=== PATIENT | female | born 1995 | race African-American/Black ===

== ENCOUNTER 2018-01-30 10:25 | Emergency (ER) | payer MEDICAID ==
[~2018-01-30 10:25] MED LIST: LEVA750T PO; LINE1TAB22 PO; PREN0.01 PO; [UNRECOGNIZED DRUG - CODE] IU
[2018-01-30 10:29] VITALS: BP 136/69; PULSE 94; RESP 16; TEMP 98.4; O2SAT 98
[2018-01-30] MEDS ORDERED: CLIN150C14 PO (13:47)
--- NOTE | 2018-01-30 13:57 | PD ---
HPI Chief Complaint: Oral / Dental Pain or Problem Time Seen by Provider: 12:40 Travel History International Travel<30 days: No Contact w/Intl Traveler<30days: No Traveled to known affect area: No History of Present Illness HPI This patient complains of pain in her right upper jaw. Duration 3 days. Severity is moderate. She has a dentist appointment tomorrow but felt she needed to get checked today. She denies fever. PFSH Past Medical History Cancer: No Cardiovascular Problems: No Diminished Hearing: No Genitourinary: No Medical other: Yes (MENEGITIS ) Musculoskeletal: No Neurologic: No Psychiatric: No Reproductive: No Respiratory: No Integumentary: Yes (HX CELLULITIS ) Immunizations Current: Yes Influenza Vaccination: No ?: : 1 Para: 1 Past Surgical History Abdominal Surgery: Yes ( 07/03/2014) Section: Yes (X 1) Gynecologic Surgery: Yes ( 07/03/2014) Social History Alcohol Use: No Tobacco Use: No Substance Use: No Allergies-Medications (Allergen,Severity, Reaction): Coded Allergies: penicillin G (Unverified Allergy, Mild, 06/11/17) Reported Meds & Prescriptions Reported Meds & Active Scripts Active Clindamycin (Clindamycin HCl) 150 Mg Cap 300 Mg PO Q6H 7 Days Zyvox (Linezolid) 600 Mg Tab 600 Mg PO Q12 Levaquin 750 Mg Tab (Levofloxacin) 750 Mg Tab 750 Mg PO DAILY@11 Reported Para-Jonas (Misc Natural Products) Cap 1 Iud IU ONCE Vit ( Plus) (Prenat Multivit/Kern/Iron/Folic Ac) Tab 1 Tab PO DAILY Review of Systems General / Constitutional: No: Fever HENT: Positive: Dental Difficulties, No: Headaches Respiratory: No: Cough Gastrointestinal: No: Nausea Physical Exam Narrative SKIN: Focused skin assessment reveals no rash or ulcers. Skin is warm and dry. Palpation shows no induration or nodules. NECK: Symmetrical appearance, midline trachea. No mass or crepitus. Thyroid without enlargement, tenderness, or mass. Oral cavity: Uvula midline. No exudate. She has a gingival abscess in the right upper jaw. It is tender but not draining. It is fluctuant Data Data Last Documented VS Vital Signs Date Time Temp Pulse Resp B/P (MAP) Pulse Ox O2 Delivery O2 Flow Rate FiO2 4/5/18 10:29 98.4 94 16 136/69 (91) 98 Orders Orders Wound Culture And Gram Stain (01/30/18 13:46) MDM Medical Decision Making Medical Screen Exam Complete: Yes Emergency Medical Condition: Yes Medical Record Reviewed: Yes Differential Diagnosis Abscess, cavity, pharyngitis Narrative Course I have reviewed the patient's electronic medical record. This patient has a right upper jaw gingival abscess. She wants incision and drainage which seems very appropriate. She is , 4 months. Procedure note: We discussed risks and benefits and alternatives and she gives verbal consent. No anesthesia was required. I used an 11 blade scalpel to incise the gingival abscess. A fair amount of thick yellow pus was drained. Culture and sensitivity and Gram stain was obtained and sent to the lab I expressed all the pus She tolerated this well I am prescribing her a week of clindamycin. She has a dentist appointment for follow-up tomorrow Diagnosis Primary Impression: Abscess of upper gingiva Additional Impression: Encounter for incision and drainage procedure Additional Instructions: Follow-up with dentist as scheduled Take antibiotics Med/Other Pt SpecificInfo: Prescription(s) given Scripts Clindamycin (Clindamycin) 150 Mg Cap 300 MG PO Q6H for Infection for 7 Days, #56 CAP 0 Refills Prov: Hamilton Lacy MD 01/30/18 Disposition: 01 DISCHARGE HOME Condition: Stable Hamilton Lacy MD Jan 30, 2018 13:57
== END 2018-01-30 14:17 | disposition home or self-care (01) ==
LOC: NEPD 10:25
DX: K05.219 Aggressive periodontitis, localized, unspecified severity (principal)
CPT/HCPCS: 41800; 87070

== ENCOUNTER 2018-07-31 22:55 | Inpatient (IN) ==
--- NOTE | 2018-07-31 23:39 | ED ---
History of Present Illness Primary Care Physician: No Primary Care Physician Chief Complaint: ctx, LOF History of Present Illness: Pt is a 22y/o @ 40.0wks. She had PNC with a CNM from [place]. She presents with c/o ctx which started this evening and ROM 30m prior to arrival ( meconium) with continued leaking. She reports ctx are painful. She had a c/s in 2013 for "failure to progress" at 5cm but states the MD who came on told her she needed to be sectioned and she merely agreed. She strongly desires . + FM. She states that she is GBS positive. OBHx: 1. CS in 2013 2. current Weeks Gestation:: 40 Para: 1 : 2 Review of Systems All other systems reviewed negative except as stated in HPI PMFSH - Medical / Surgical Hx Neg / Unobtainable Medical Problems Denied: Yes - Surgical History Surgical History: Surgical History (Last Updated 07/31/18 @ 23:35 by Joe Abreu MD) History of delivery - Social History I have reviewed the patient's Social History: Yes - Tobacco History Second Hand Smoke Exposure: No Tobacco Use In Past 30 Days: No Smoking Status: Never smoker - Alcohol History How Often Do You Have a Drink Containing Alcohol: Never - Substance Use History Substance History: No History of Abuse Medications and Allergies Allergies Allergy/AdvReac Type Severity Reaction Status Date / Time penicillin G Allergy Mild Rash Verified 05/21/18 12:58 Home Medications Medication Instructions Recorded Confirmed Type No Known Home Medications 05/21/18 05/21/18 History Exam Vital signs: Vital Signs 07/31/18 23:19 07/31/18 23:25 Temperature 98.5 F Pulse Rate 81 Respiratory Rate 18 Blood Pressure 141/90 H Narrative: General: well developed, well nourished, no acute distress HEENT: normocephalic atraumatic, extraocular movements intact, neck supple Abdomen: soft, gravid, nontender, nondistended Uterus: fundus term Extremities: full range of motion Skin: normal coloration, no rashes, no suspicious skin lesions noted Neurologic: cranial nerves 2-12 grossly intact, normal muscle tone, normal gait Psychiatric: normal mood and affect, appropriate FHTs: 150s, moderate variability, no accels, occasional variables Hulett: ctx q4-6m Cvx: 5-6/50/-2 Assessment and Plan - Diagnosis (1) 40 weeks gestation of Code(s): Z3A.40 - 40 weeks gestation of Status: Acute (2) History of delivery Code(s): Z98.891 - History of uterine scar from previous surgery Status: Acute (3) Rupture of membranes with meconium present Code(s): O77.0 - Labor and delivery complicated by meconium in amniotic fluid Status: Acute (4) Uterine contractions during Code(s): O62.2 - Other uterine inertia Status: Acute - Plan 22y/o @ 40.0wks with labor, ROM (meconium), h/o c/s x1. -- admit to L&D -- CLD, CEFM/toco -- epidural/lucio PRN -- desires -- GBS+ with PCN mild allergy (ancef ordered) Dispo: anticipate Discharge Plan - Discharge Disposition Patient Disposition: 30 Still Patient - Physicians Team ED Provider: Joe Abreu V Primary Care Provider: Primary Care Brook[place],No
[2018-07-31] MEDS ORDERED: fentaNYL Citrate Inj 100 MCG/2 ML Ampul IV.PUSH PRN ×2 (23:41)
[2018-07-31] MEDS ORDERED: Naloxone Inj 0.4 MG/ML Vial IV.PUSH PRN (23:41)
[2018-07-31] MEDS ORDERED: Sodium Chlor 0.9% Inj 500 ML IV.SIG PRN (23:41)
[2018-07-31] MEDS ORDERED: Oxytocin 30 Units/500ml Premix 30 UNITS/500 ML BAG IV.SIG ONE (23:41)
[2018-07-31] MEDS ORDERED: Sod Chloride 0.9% Inj 1,000 ML IV.CONT PRN (23:41)
[2018-07-31] MEDS ORDERED: Oxytocin 30 Units/500ml Premix 30 UNITS/500 ML BAG IV.SIG PRN (23:42)
[2018-07-31] MEDS ORDERED: Citric Acid/Sodium Citrate Liq 30 ML UDC PO SCH (23:45)
[2018-08-01 00:20] LABS: Amorphous Sediment,Urine Rare /hpf; Bacteria,Urine Occasional /hpf; Bilirubin,Urine Negative (Negative); Clarity,Urine Cloudy (Clear); Color,Urine Amber (Yellw/Straw); Glucose,Urine (UA) Negative (Negative); Leukocyte Esterase,Urine Moderate (Negative); Mucus,Urine Moderate /lpf (Occasional); Nitrite,Urine Negative (Negative); Renal Epithelial Cells,Urine <1 /hpf; Specific Gravity,Urine 1.017 (1.002-1.035); Squamous Epithelial Cell,Urine 4 /hpf (0-5); Urobilinogen,Urine 4 or Greater mg/dL (Less than 2)
[2018-08-01 00:20] LABS: Hematocrit 32.3 % (35.0-46.0); Hemoglobin 10.6 gm/dL (11.6-15.3); Mean Corpuscular HGB Conc 32.9 % (32.0-36.0); Mean Corpuscular Hemoglobin 26.6 pg (27.0-34.0); Mean Corpuscular Volume 80.7 fL (80.0-100.0); Mean Platelet Volume 7.8 fL (7.0-11.0); Platelet Count 310 th/mm3 (150-450); Red Cell Distribution Width 16.3 % (11.6-17.2)
[2018-08-01 00:24] LABS: Amphetamine Urine With Conf Neg (Neg); Benzodiazepine Urine With Conf Neg (Neg)
[2018-08-01 01:23] LABS: Hepatitits B Surface Antigen Nonreactive (Nonreactive)
[2018-08-01 01:28] LABS: Hepatitis A IgM Antibody Nonreactive (Nonreactive)
[2018-08-01] MEDS ORDERED: fentaNYL 2MCG-Bupiv 0.125% Epi 150 ML EPIDURAL ONE (01:57)
[2018-08-01] MEDS ORDERED: Lidocaine 2%/Epinephrine 1:200,000 PF Inj 20 ML Vial ONE (02:01)
[2018-08-01] MEDS ORDERED: Lidocaine PF 1% Inj 5 ML Vial ONE (02:02)
--- NOTE | 2018-08-01 04:58 | P.OBLABOR ---
Subjective Interval history: CTSP by RN for bradycardia. Pt being repositioned upon my arrival and FSE placed. Objective Vital Signs: Vital Signs - 8 hr 07/31/18 23:19 07/31/18 23:25 07/31/18 23:35 Temperature 98.5 F Pulse Rate 81 97 H Respiratory Rate 18 Blood Pressure 141/90 H 140/80 07/31/18 23:55 08/01/18 00:30 08/01/18 01:00 Temperature Pulse Rate 102 H Respiratory Rate 18 18 Blood Pressure 116/85 08/01/18 01:25 08/01/18 02:06 08/01/18 02:11 Temperature Pulse Rate 94 H Respiratory Rate 18 Blood Pressure 131/78 08/01/18 02:13 08/01/18 02:26 08/01/18 02:55 Temperature Pulse Rate 89 84 84 Respiratory Rate Blood Pressure 150/94 H 130/85 116/62 08/01/18 03:01 08/01/18 03:20 08/01/18 03:25 Temperature 97.9 F Pulse Rate 88 96 H 91 H Respiratory Rate 18 Blood Pressure 116/63 113/62 115/58 L 08/01/18 03:30 08/01/18 03:35 08/01/18 03:41 Temperature Pulse Rate 90 93 H 95 H Respiratory Rate Blood Pressure 106/57 L 115/66 112/60 08/01/18 03:51 08/01/18 04:11 08/01/18 04:15 Temperature Pulse Rate 91 H 89 Respiratory Rate 18 20 Blood Pressure 132/41 L 125/56 L 08/01/18 04:16 Temperature Pulse Rate 116 H Respiratory Rate Blood Pressure 112/61 Objective: No cord prolapse or palpable uterine rupture. Head -3 but not floating. No VB. Cvx 4-5/60/-3 FHR returned to baseline with repositioning and O2. Review of tracing demonstrates moderate variability but some late decelerations. Assessment and Plan - Diagnosis (1) 40 weeks gestation of Code(s): Z3A.40 - 40 weeks gestation of Status: Acute (2) History of delivery Code(s): Z98.891 - History of uterine scar from previous surgery Status: Acute (3) Rupture of membranes with meconium present Code(s): O77.0 - Labor and delivery complicated by meconium in amniotic fluid Status: Acute (4) Uterine contractions during Code(s): O62.2 - Other uterine inertia Status: Acute - Plan Monitor closely. Pt aware of possibility of need for rCS if NRFHTs or arrest of dilation.
[2018-08-01] MEDS ORDERED: Lidocaine 1%/Epinephrine 1:100,000 Inj 20 ML Vial ONE (06:02)
[2018-08-01] MEDS ORDERED: Lidocaine 2%/Epinephrine 1:100,000 Inj 20 ML Vial ONE (06:04)
[2018-08-01] MEDS ORDERED: Morphine Sulfate PF Inj 5 MG/10 ML Ampul ONE (06:05)
--- NOTE | 2018-08-01 06:05 | P.OBGPN ---
Pt with recurrent late decelerations. STAT called. Pt refusing. States that she wants "to try one more thing". Pt advised that FHT is cat 3 and there are concerns for neurological damage to her baby. Pt states that she "needs more information". I explained quickly that the heartbeat of the baby is dropping with each contraction. Pt states that it is not dropping low enough. Advised pt again of emergent situation and strongly encouraged cooperation for rCS, especially given cervical exam of only 4-5cm. Pt and family member asking if pitocin can be given to help labor advance. Pt states that she wants 5-10 minutes to discuss with family. Pt advised that there is not time to waste and prolonging delay can lead to significant neurologic brain damage to baby.
[2018-08-01] MEDS ORDERED: Lidocaine PF 1% Inj 5 ML Syringe OTHER ONE (06:10)
[2018-08-01] MEDS ORDERED: Succinylcholine Inj 200 MG/10 ML Vial IV.PUSH ONE (06:10)
[2018-08-01] MEDS ORDERED: Ketorolac Inj 30 MG/ML (IVP) Vial IV.PUSH ONE (06:10)
[2018-08-01 06:37] LABS: Cord Arterial Blood HCO3 21.8
[2018-08-01] MEDS ORDERED: fentaNYL Citrate Inj 100 MCG/2 ML Ampul ONE (07:02)
[2018-08-01] MEDS ORDERED: Oxytocin 30 Units/500ml Premix 30 UNITS/500 ML BAG IV.SIG ONE (07:03)
[2018-08-01] MEDS ORDERED: Simethicone 80 MG Chew Tablet PO PRN (07:03)
[2018-08-01] MEDS ORDERED: Morphine Sulfate Inj 2 MG/ML Vial IV.PUSH PRN (07:04)
--- NOTE | 2018-08-01 07:20 | P.OP ---
- Preoperative Diagnosis (1) bradycardia during labor (2) 40 weeks gestation of (3) History of delivery (4) Rupture of membranes with meconium present - Postoperative Diagnosis (1) 40 weeks gestation of (2) History of delivery (3) Rupture of membranes with meconium present (4) bradycardia during labor Date of procedure: 08/01/18 Procedure: repeat section Anesthesia: GETA Surgeon: Joe Abreu MD Estimated blood loss (mL): 400 IV fluids (mL): 1,600 Urine output (mL): 300 Pathology: other (cord blood, cord gas, placenta) Operation and Findings: Antibiotics: 2g ancef prior to skin incision DVT prophylaxis: SCDs were in place and active throughout the entire procedure Findings: 1. dense R lateral abdominal to uterine adhesions 2. vtx male delivered at 06:18, 1 minute 1, other APGARs pending, wt [id number] Complications: none Disposition: to PACU in stable condition Indication: 22y/o @ 40.1wks with h/o CS x1 undergoing desired TOLAC. Experienced cat 3 tracing with eventual bradycardia. Pt refused c- section for 11 minutes. Technique: The R/B/A were discussed with the pt, all questions answered, and consents signed. The pt was taken to the operating room where general anesthesia was induced. She was splashed with betadine and draped in the normal sterile fashion in the dorsal supine position. A Pfannenstiel skin incision was made with the scalpel and carried through to the underlying layer of fascia. The fascia was incised in the midline and the incision extended manually. The rectus muscles were in the midline, and the peritoneum identified and entered bluntly. The peritoneal incision was stretched with good visualization of the bladder. The bladder blade was inserted and the vesicouterine peritoneum identified, grasped with pick-ups, and entered sharply with Metzenbaum scissors. This incision was extended laterally and a bladder flap created digitally. The bladder blade was then reinserted and the lower uterine segment incised in a transverse fashion with the scalpel. The uterine incision was stretched superiorly and inferiorly. The bladder blade was removed and the 's head delivered atraumatically followed by the body. The cord was milked x4 and immediately double clamped and cut and infant handed off to the waiting team. The placenta expelled with manual fundal massage. The uterus was exteriorized and cleared of all clots and debris. Dense adhesions were noted from the R lateral uterus to the anterior abdominal wall. The uterine incision was repaired with 0-vicryl in a running, locked fashion. A second layer using 0- monocryl suture was used to embricate and Alfie was placed along the corners to obtain excellent hemostasis. The posterior cul-de-sac was suctioned and the uterus was returned to the abdomen. The gutters were cleared of all clots and debris. The peritoneum was reapproximated with 3-0 vicryl in a running fashion. The rectus muscles were reapproximated with a 0-monocryl figure of eight. The underneath fascia was inspected and found to be hemostatic. The fascia was closed with 0-vicryl in a running fashion. The subcutaneous tissue was irrigated with saline and made hemostatic with the Bovie. The subcutaneous layer was reapproximated with plain gut with simple interrupted stitches. The skin was closed with 4-0 monocryl. Steristrips were placed and the incision dressed appropriately. The patient tolerated the procedure well. She was taken to the recovery room in stable condition. Sponge, lap, instrument, and needle counts were correct x3.
[2018-08-01] MEDS ORDERED: Oxytocin 30 Units/500ml Premix 30 UNITS/500 ML BAG IV.SIG PRN (12:03)
[2018-08-01] MEDS ORDERED: Zolpidem Tartrate 5 MG Tablet PO PRN (21:00)
[2018-08-02 06:34] LABS: Baso % (Auto) 0.1 % (0.0-2.0); Eos % (Auto) 0.1 % (0.0-4.0); Hematocrit 25.9 % (35.0-46.0); Hemoglobin 8.5 gm/dL (11.6-15.3); Lymph # (Auto) 1.8 th/mm3 (1.0-4.8); Lymph % (Auto) 12.7 % (9.0-44.0); Mean Corpuscular Hemoglobin 27.1 pg (27.0-34.0); Mean Corpuscular Volume 82.1 fL (80.0-100.0); Mean Platelet Volume 8.1 fL (7.0-11.0); Neut % (Auto) 80.1 % (16.0-70.0); Platelet Count 255 th/mm3 (150-450); Red Blood Count 3.15 mil/mm3 (4.00-5.30); Red Cell Distribution Width 16.9 % (11.6-17.2); White Blood Count 13.8 th/mm3 (4.0-11.0)
--- NOTE | 2018-08-02 07:25 | P.PNOB ---
Subjective Post op day: 1 Interval history: Postop day #1, delivered as a at 40 weeks. Patient was a stat for category 3 tracing. Patient seen and examined bedside this morning, patient is doing well. Patient is eating and drinking without difficulty. Patient is ambulating and voiding without difficulty. Denies any chest pain/ shortness of breath/dizziness. No calf tenderness. Well controlled on current medications. Objective Vital Signs/I&O: Vital Signs 08/01/18 07:25 08/01/18 07:40 08/01/18 07:55 Temperature Pulse Rate 91 H 89 84 Respiratory Rate 18 16 18 Blood Pressure 112/69 106/61 111/67 08/01/18 08:10 08/01/18 08:19 08/01/18 09:15 Temperature 97.7 F Pulse Rate 81 85 76 Respiratory Rate 18 18 18 Blood Pressure 115/58 L 105/62 118/75 08/01/18 14:15 08/01/18 20:15 08/02/18 00:15 Temperature 98.6 F 98.5 F 98.4 F Pulse Rate 89 72 67 Respiratory Rate 9 L 18 18 Blood Pressure 137/77 117/72 113/68 08/02/18 06:10 Temperature 98.3 F Pulse Rate 63 Respiratory Rate 18 Blood Pressure 107/69 Intake & Output 08/01/18 08/02/18 08/02/18 18:59 06:59 18:59 Intake Total 1100 / 1100 Balance 1100 / 1100 Intake: IV 1100 / 1100 LR 1000 mL Inj 1,000 ML @ 125 1000 / 1000 mls/hr IV.CONT .Q8H JJ Rx#: [id number] Ancef Inj 1,000 MG In NS Inj 100 / 100 100 ML @ 200 mls/hr IV.SIG Q4H JJ Rx#:[id number] Result Diagrams: 08/02/18 05:49 Objective Remarks: GENERAL: Well-nourished, well-developed patient. CARDIOVASCULAR: Regular rate and rhythm without murmurs, gallops, or rubs. RESPIRATORY: Breath sounds equal bilaterally. No accessory muscle use. ABDOMEN/GI: Abdomen soft, non-tender, bowel sounds present. Incision: Clean, dry and intact. Dressing in place. Fundus: Firm, non-tender at umbilicus. Fundus mildly tender. GENITOURINARY: Light to moderate bleeding. EXTREMITIES: No cyanosis or edema, non-tender, without signs of DVT. Medications and IVs: Active Medications Citric Acid/Sodium Citrate (Sodium Citrate/Citric Acid Liq) 30 ml PO PIE CHEF [facility] Stop: 08/04/18 23:44 Diphtheria/Pertussis/Tetanus Vacc (Boostrix Vaccine Inj) 0.5 ml IM .ONCE ONE Stop: 08/02/18 16:01 Fentanyl Citrate (Fentanyl Inj) 50 mcg IV.PUSH Q1H PRN PRN Reason: Pain Scale 3 - 5 Fentanyl Citrate (Fentanyl Inj) 100 mcg IV.PUSH Q1H PRN PRN Reason: PAIN SCALE 6 TO 10 Last Admin: 08/01/18 00:25 Dose: 100 mcg Lactated Ringer's (Lr 1000 Ml Inj) 1,000 mls @ 3,000 mls/hr IV.SIG UNSCH PRN PRN Reason: compromise or epidural Last Infusion: 08/01/18 02:20 Dose: Infused Lactated Ringer's (Lr 1000 Ml Inj) 1,000 mls @ 125 mls/hr IV.CONT .Q8H [facility] Last Infusion: 08/01/18 17:29 Dose: Infused Sodium Chloride (Ns Inj) 500 mls @ 1,000 mls/hr IV.SIG UNSCH PRN PRN Reason: SEE LABEL COMMENTS Sodium Chloride (Ns Inj) 1,000 mls @ 100 mls/hr IV.CONT .Q10H PRN PRN Reason: SEE LABEL COMMENTS Oxytocin (Pitocin 30 Units/Ns 500 Ml Premix) 30 units in 500 mls @ 1 mls/hr IV.SIG TITRATE PRN; Protocol PRN Reason: For induction of labor Lactated Ringer's (Lr 1000 Ml Inj) 1,000 mls @ 100 mls/hr IV.CONT .Q10H [facility] Stop: 08/02/18 08:02 Last Admin: 08/02/18 05:32 Dose: Not Given Oxytocin (Pitocin 30 Units/Ns 500 Ml Premix) 30 units in 500 mls @ 100 mls/hr IV.SIG UNSCH PRN PRN Reason: Heavy bleeding Ketorolac Tromethamine (Toradol Inj) 30 mg IM Q6H PRN PRN Reason: SEE LABEL COMMENTS Last Admin: 08/01/18 14:27 Dose: 30 mg Lidocaine HCl (Xylocaine 1% Inj) 10 ml INFILTRATN PRN PRN PRN Reason: For episiotomy repair Stop: 08/02/18 23:40 Lidocaine HCl (Xylocaine 1% Inj) 0.1 ml I-DERMAL PRN PRN PRN Reason: For IV start Stop: 08/03/18 23:40 Measles/Mumps/Rubella Vaccine Live (M-M-R Ii Vaccine Inj) 0.5 ml SQ .ONCE ONE Stop: 08/02/18 16:01 Mineral Oil (Muri-Lube Oil) 10 ml TOPICAL PRN PRN PRN Reason: PRN perineal massage Morphine Sulfate (Morphine Inj) 2 mg IV.PUSH Q3H PRN PRN Reason: PAIN 1-10;IF UNABLE TO TAKE PO Naloxone HCl (Narcan Inj) 0.1 mg IV.PUSH Q2M PRN PRN Reason: for opiate reversal Ondansetron HCl (Zofran Inj) 4 mg IV.PUSH Q6H PRN PRN Reason: NAUSEA OR VOMITING Last Admin: 08/01/18 00:37 Dose: 4 mg Ondansetron HCl (Zofran Inj) 4 mg IV.PUSH Q6H PRN PRN Reason: NAUSEA OR VOMITING Oxycodone/Acetaminophen (Percocet 5/325 Mg) 1 tab PO Q4H PRN PRN Reason: PAIN SCALE 3 TO 5 Last Admin: 08/02/18 02:43 Dose: 1 tab Oxycodone/Acetaminophen (Percocet 5/325 Mg) 2 tab PO Q4H PRN PRN Reason: PAIN SCALE 6 TO 10 Senna/Docusate Sodium (Samira-Colace) 2 tab PO Q12H PRN PRN Reason: CONSTIPATION Simethicone (Mylicon Chew) 80 mg PO QID PRN PRN Reason: FLATULENCE Sodium Chloride (Ns Flush) 2 ml IV.FLUSH BID [facility] Last Admin: 08/02/18 05:32 Dose: Not Given Sodium Chloride (Ns Flush) 2 ml IV.FLUSH PRN PRN PRN Reason: FLUSH AFTER USING IV ACCESS Sodium Chloride (Ns Flush) 2 ml IV.FLUSH BID [facility] Last Admin: 08/02/18 05:32 Dose: 2 ml Sodium Chloride (Ns Flush) 2 ml IV.FLUSH PRN PRN PRN Reason: FLUSH AFTER USING IV ACCESS Zolpidem Tartrate (Ambien) 5 mg PO HS PRN PRN Reason: INSOMNIA Assessment and Plan - Diagnosis (1) delivery delivered Code(s): O82 - Encounter for delivery without indication Status: Acute Plan: Patient was counseled to do 6 weeks of pelvic rest. --AF VSS --Passing gas -- Positive marijuana use on UDS -- Hb stable at 8.5 from 10.6, will plan to DC on ferrous sulfate 325 twice daily, vitamin C 500 daily, Colace 100 twice daily --Continue routine care --Motrin and Percocet when necessary for pain --Encourage OOB --Pelvic rest for 6 weeks will need follow-up appointment at that time. --Contraception: Unsure, continue to discuss --Anticipate discharge tomorrow or Saturday - Plan Monitor closely. Pt aware of possibility of need for rCS if NRFHTs or arrest of dilation.
[2018-08-02] MEDS: Senna/Docusate Sodium 8.6/50 MG Tablet PO PRN ×2 (08:15→23:14)
[2018-08-02] MEDS ORDERED: Measles/Mumps/Rubella Vaccine Inj 0.5 ML Vial SQ ONE (16:00)
[2018-08-02] MEDS ORDERED: Diphtheria/Tetanus/Pertussis Vaccine Inj 0.5 ML Syringe IM ONE (16:00)
--- NOTE | 2018-08-03 08:12 | P.PNOB ---
Subjective Post op day: 2 Interval history: Postop day #2, delivered as a at 40 weeks for stat 2/2 category 3 tracing. Patient seen and examined bedside this morning, patient is doing well. Patient is eating and drinking without difficulty. Patient is ambulating , passing gas, and voiding without difficulty. Denies any chest pain/shortness of breath/dizziness. No calf tenderness. Well controlled on current medications. Objective Vital Signs/I&O: Vital Signs 08/02/18 09:58 08/02/18 21:28 Temperature 98.0 F 98.0 F Pulse Rate 88 74 Respiratory Rate 20 18 Blood Pressure 103/62 123/64 Result Diagrams: 08/02/18 05:49 Objective Remarks: GENERAL: Well-nourished, well-developed patient. CARDIOVASCULAR: Regular rate and rhythm without murmurs, gallops, or rubs. RESPIRATORY: Breath sounds equal bilaterally. No accessory muscle use. ABDOMEN/GI: Abdomen soft, non-tender, bowel sounds present. Incision: Clean, dry and intact. Fundus: Firm, non-tender at umbilicus. GENITOURINARY: Light to moderate bleeding. EXTREMITIES: No cyanosis or edema, non-tender, without signs of DVT. Medications and IVs: Active Medications Citric Acid/Sodium Citrate (Sodium Citrate/Citric Acid Liq) 30 ml PO [employer] [facility] Stop: 08/04/18 23:44 Fentanyl Citrate (Fentanyl Inj) 50 mcg IV.PUSH Q1H PRN PRN Reason: Pain Scale 3 - 5 Fentanyl Citrate (Fentanyl Inj) 100 mcg IV.PUSH Q1H PRN PRN Reason: PAIN SCALE 6 TO 10 Last Admin: 08/01/18 00:25 Dose: 100 mcg Lactated Ringer's (Lr 1000 Ml Inj) 1,000 mls @ 3,000 mls/hr IV.SIG UNSCH PRN PRN Reason: compromise or epidural Last Infusion: 08/01/18 02:20 Dose: Infused Lactated Ringer's (Lr 1000 Ml Inj) 1,000 mls @ 125 mls/hr IV.CONT .Q8H [facility] Last Infusion: 08/01/18 17:29 Dose: Infused Sodium Chloride (Ns Inj) 500 mls @ 1,000 mls/hr IV.SIG UNSCH PRN PRN Reason: SEE LABEL COMMENTS Sodium Chloride (Ns Inj) 1,000 mls @ 100 mls/hr IV.CONT .Q10H PRN PRN Reason: SEE LABEL COMMENTS Oxytocin (Pitocin 30 Units/Ns 500 Ml Premix) 30 units in 500 mls @ 1 mls/hr IV.SIG TITRATE PRN; Protocol PRN Reason: For induction of labor Oxytocin (Pitocin 30 Units/Ns 500 Ml Premix) 30 units in 500 mls @ 100 mls/hr IV.SIG UNSCH PRN PRN Reason: Heavy bleeding Ibuprofen (Motrin) 800 mg PO Q6H PRN PRN Reason: Acute Pain Last Admin: 08/03/18 05:45 Dose: 800 mg Lidocaine HCl (Xylocaine 1% Inj) 0.1 ml I-DERMAL PRN PRN PRN Reason: For IV start Stop: 08/03/18 23:40 Mineral Oil (Muri-Lube Oil) 10 ml TOPICAL PRN PRN PRN Reason: PRN perineal massage Morphine Sulfate (Morphine Inj) 2 mg IV.PUSH Q3H PRN PRN Reason: PAIN 1-10;IF UNABLE TO TAKE PO Naloxone HCl (Narcan Inj) 0.1 mg IV.PUSH Q2M PRN PRN Reason: for opiate reversal Ondansetron HCl (Zofran Inj) 4 mg IV.PUSH Q6H PRN PRN Reason: NAUSEA OR VOMITING Last Admin: 08/01/18 00:37 Dose: 4 mg Ondansetron HCl (Zofran Inj) 4 mg IV.PUSH Q6H PRN PRN Reason: NAUSEA OR VOMITING Oxycodone/Acetaminophen (Percocet 5/325 Mg) 1 tab PO Q4H PRN PRN Reason: PAIN SCALE 3 TO 5 Last Admin: 08/03/18 05:46 Dose: 1 tab Oxycodone/Acetaminophen (Percocet 5/325 Mg) 2 tab PO Q4H PRN PRN Reason: PAIN SCALE 6 TO 10 Senna/Docusate Sodium (Samira-Colace) 2 tab PO Q12H PRN PRN Reason: CONSTIPATION Last Admin: 08/02/18 23:14 Dose: 2 tab Simethicone (Mylicon Chew) 80 mg PO QID PRN PRN Reason: FLATULENCE Sodium Chloride (Ns Flush) 2 ml IV.FLUSH BID JJ Last Admin: 08/02/18 23:09 Dose: Not Given Sodium Chloride (Ns Flush) 2 ml IV.FLUSH PRN PRN PRN Reason: FLUSH AFTER USING IV ACCESS Sodium Chloride (Ns Flush) 2 ml IV.FLUSH BID JJ Last Admin: 08/02/18 23:09 Dose: Not Given Sodium Chloride (Ns Flush) 2 ml IV.FLUSH PRN PRN PRN Reason: FLUSH AFTER USING IV ACCESS Zolpidem Tartrate (Ambien) 5 mg PO HS PRN PRN Reason: INSOMNIA Assessment and Plan - Diagnosis (1) delivery delivered Code(s): O82 - Encounter for delivery without indication Status: Acute Plan: Patient was counseled to do 6 weeks of pelvic rest. --AF VSS --Passing gas -- Positive marijuana use on UDS -- Hb stable at 8.5 from 10.6, will plan to DC on ferrous sulfate 325 twice daily, vitamin C 500 daily, Colace 100 twice daily --Continue routine care --Motrin and Percocet when necessary for pain --Encourage OOB --Pelvic rest for 6 weeks will need follow-up appointment at that time. --Contraception: Unsure, continue to discuss --Anticipate discharge tomorrow or Saturday (2) Anemia Code(s): D64.9 - Anemia, unspecified Status: Acute (3) Illicit drug use Code(s): F19.90 - Other psychoactive substance use, unspecified, uncomplicated Status: Acute - Plan 22 y/o POD#2 2/2 emergency C/S. Doing well. 1. Illicit Substance Use: Positive marijuana use on UDS 2. Anemia -- Hb stable at 8.5 from 10.6 -- DC on ferrous sulfate 325 twice daily, vitamin C 500 daily, Colace 100 twice daily 3. Routine post-operative care --Continue routine care --Motrin and Percocet when necessary for pain --Encourage OOB -- Patient was counseled to do 6 weeks of pelvic rest, avoiding sexual activity. States she will remain abstinent for contraception. -- Currently w/o difficulty --Anticipate discharge tomorrow per request, baby in the NICU
[2018-08-03] MEDS: Senna/Docusate Sodium 8.6/50 MG Tablet PO PRN (14:35)
[2018-08-04] MEDS: Senna/Docusate Sodium 8.6/50 MG Tablet PO PRN (05:52)
[2018-08-04 07:38] VITALS: BP 111/67; PULSE 81; RESP 18; TEMP 98.1
--- NOTE | 2018-08-04 08:36 | P.PNOB ---
Subjective Post op day: 3 Interval history: Pt seen and examined bedside this morning. No N/V. Ambulating and voiding without difficulty. pain well-controlled on current medications. Denies CP/SOB/ dizzyness. Denies calf tenderness. Objective Vital Signs/I&O: Vital Signs 08/03/18 09:50 08/03/18 15:55 08/03/18 20:15 Temperature 98.5 F 98.5 F 98.3 F Pulse Rate 16 L 81 84 Respiratory Rate 16 16 20 Blood Pressure 138/74 128/79 122/88 08/04/18 07:37 Temperature 98.1 F Pulse Rate 81 Respiratory Rate 18 Blood Pressure 111/67 Result Diagrams: 08/02/18 05:49 Objective Remarks: GENERAL: Well-nourished, well-developed patient. CARDIOVASCULAR: Regular rate and rhythm without murmurs, gallops, or rubs. RESPIRATORY: Breath sounds equal bilaterally. No accessory muscle use. ABDOMEN/GI: Abdomen soft, non-tender, bowel sounds present. Incision: Clean, dry and intact. bandage in place. no drainage. Fundus: Firm, non-tender at umbilicus. GENITOURINARY: Light to moderate bleeding. EXTREMITIES: No cyanosis or edema, non-tender, without signs of DVT. Medications and IVs: Active Medications Citric Acid/Sodium Citrate (Sodium Citrate/Citric Acid Liq) 30 ml PO [facility] Stop: 08/04/18 23:44 Fentanyl Citrate (Fentanyl Inj) 50 mcg IV.PUSH Q1H PRN PRN Reason: Pain Scale 3 - 5 Fentanyl Citrate (Fentanyl Inj) 100 mcg IV.PUSH Q1H PRN PRN Reason: PAIN SCALE 6 TO 10 Last Admin: 08/01/18 00:25 Dose: 100 mcg Lactated Ringer's (Lr 1000 Ml Inj) 1,000 mls @ 3,000 mls/hr IV.SIG UNSCH PRN PRN Reason: compromise or epidural Last Infusion: 08/01/18 02:20 Dose: Infused Lactated Ringer's (Lr 1000 Ml Inj) 1,000 mls @ 125 mls/hr IV.CONT .Q8H [facility] Last Infusion: 08/01/18 17:29 Dose: Infused Sodium Chloride (Ns Inj) 500 mls @ 1,000 mls/hr IV.SIG UNSCH PRN PRN Reason: SEE LABEL COMMENTS Sodium Chloride (Ns Inj) 1,000 mls @ 100 mls/hr IV.CONT .Q10H PRN PRN Reason: SEE LABEL COMMENTS Oxytocin (Pitocin 30 Units/Ns 500 Ml Premix) 30 units in 500 mls @ 1 mls/hr IV.SIG TITRATE PRN; Protocol PRN Reason: For induction of labor Oxytocin (Pitocin 30 Units/Ns 500 Ml Premix) 30 units in 500 mls @ 100 mls/hr IV.SIG UNSCH PRN PRN Reason: Heavy bleeding Ibuprofen (Motrin) 800 mg PO Q6H PRN PRN Reason: Acute Pain Last Admin: 08/04/18 05:53 Dose: 800 mg Mineral Oil (Muri-Lube Oil) 10 ml TOPICAL PRN PRN PRN Reason: PRN perineal massage Morphine Sulfate (Morphine Inj) 2 mg IV.PUSH Q3H PRN PRN Reason: PAIN 1-10;IF UNABLE TO TAKE PO Naloxone HCl (Narcan Inj) 0.1 mg IV.PUSH Q2M PRN PRN Reason: for opiate reversal Ondansetron HCl (Zofran Inj) 4 mg IV.PUSH Q6H PRN PRN Reason: NAUSEA OR VOMITING Last Admin: 08/01/18 00:37 Dose: 4 mg Ondansetron HCl (Zofran Inj) 4 mg IV.PUSH Q6H PRN PRN Reason: NAUSEA OR VOMITING Oxycodone/Acetaminophen (Percocet 5/325 Mg) 1 tab PO Q4H PRN PRN Reason: PAIN SCALE 3 TO 5 Last Admin: 08/04/18 05:52 Dose: 1 tab Oxycodone/Acetaminophen (Percocet 5/325 Mg) 2 tab PO Q4H PRN PRN Reason: PAIN SCALE 6 TO 10 Senna/Docusate Sodium (Samira-Colace) 2 tab PO Q12H PRN PRN Reason: CONSTIPATION Last Admin: 08/04/18 05:52 Dose: 2 tab Simethicone (Mylicon Chew) 80 mg PO QID PRN PRN Reason: FLATULENCE Sodium Chloride (Ns Flush) 2 ml IV.FLUSH BID JJ Last Admin: 08/03/18 21:12 Dose: Not Given Sodium Chloride (Ns Flush) 2 ml IV.FLUSH PRN PRN PRN Reason: FLUSH AFTER USING IV ACCESS Sodium Chloride (Ns Flush) 2 ml IV.FLUSH BID JJ Last Admin: 08/03/18 21:12 Dose: Not Given Sodium Chloride (Ns Flush) 2 ml IV.FLUSH PRN PRN PRN Reason: FLUSH AFTER USING IV ACCESS Zolpidem Tartrate (Ambien) 5 mg PO HS PRN PRN Reason: INSOMNIA Assessment and Plan - Diagnosis (1) delivery delivered Code(s): O82 - Encounter for delivery without indication Status: Acute Plan: 22 y/o POD#3 2/2 emergency C/S. Patient was counseled to do 6 weeks of pelvic rest. --AF VSS --Passing gas -- Positive marijuana use on UDS -- Hb stable at 8.5 from 10.6, will plan to DC on ferrous sulfate 325 twice daily, vitamin C 500 daily, Colace 100 twice daily --Continue routine care --Motrin and Percocet when necessary for pain --Encourage OOB --Pelvic rest for 6 weeks will need follow-up appointment at that time. --Contraception: Unsure, will f/u with PCP --Anticipate discharge today, despite baby likely staying (2) Anemia Code(s): D64.9 - Anemia, unspecified Status: Acute (3) Illicit drug use Code(s): F19.90 - Other psychoactive substance use, unspecified, uncomplicated Status: Acute
== END 2018-08-04 14:00 | disposition home or self-care (01) ==
LOC: HOBED 22:55 → H2E 23:37 → H1EA 08-01 08:55
PROVIDERS: ADMIT Obstetrics & Gynecology; ATTEND Obstetrics & Gynecology

== ENCOUNTER 2018-08-14 09:21 | Inpatient (IN) ==
--- NOTE | 2018-08-14 11:34 | P.HPOB ---
History of Present Illness Primary Care Physician: No Primary Care Physician History of Present Illness: female s/p emergency c/s 08/01/18 presented to [facility] ED yesterday complaining of sever pain in her abdomen. Her pain became has been present since her c/s but became acutely worse 1 day previous. She rates it as a 10/10, left sided, exacerbated by movement and when she breast feeds. She has been taking 600mg ibuprofen daily without relief. She denies nausea, vomiting, shortness of breath, chest pain. She was seen by her OB before coming to the ED for an incision check. Para: 2 : 2 Total # of Miscarriage(s): 0 Total # of Abortions (Spontaneous & Elective): 0 - Inpatient Certification I certify that the inpatient services were ordered in accordance with Medicare regulations governing the order. This includes certification that hospital inpatient services are reasonable and necessary and in the case of services not specified as inpatient-only under 42 CFR 419.22(n), that they are appropriately provided as inpatient services in accordance to with the 2-midnight benchmark under 43 CFR 412.3(e) Plans for Post Hospital Care: Home Review of Systems All other systems reviewed negative except as stated in HPI PMFSH - History History Provided By: Patient - Medical History Medical History: Medical History (Last Updated 08/13/18 @ 19:00 by Steph Hawthorne RN) section wound complication - Surgical History Surgical History: Surgical History (Last Reviewed 08/13/18 @ 18:59 by Jamaal Cortez) History of delivery - Social History I have reviewed the patient's Social History: Yes - Tobacco History Second Hand Smoke Exposure: No Smoking Status: Never smoker - Alcohol History How Often Do You Have a Drink Containing Alcohol: Never - Substance Use History Substance History: No History of Abuse Medications and Allergies Allergies Allergy/AdvReac Type Severity Reaction Status Date / Time penicillin G Allergy Mild Rash Verified 08/13/18 18:49 Exam Narrative: GENERAL: Well-nourished, well-developed patient. CARDIOVASCULAR: Regular rate and rhythm without murmurs, gallops, or rubs. RESPIRATORY: Breath sounds equal bilaterally. No accessory muscle use. ABDOMEN/GI: Abdomen soft, diffusely tender, bowel sounds present. Incision: Clean, dry and intact. Fundus: Firm, non-tender at umbilicus. EXTREMITIES: No cyanosis or edema, non-tender, without signs of DVT. Caprini VTE Risk Assessment Caprini VTE Risk Assessment: Moderate/High Risk (score >= 2) Caprini Risk Assessment Model: Point Value = 1 Point Value = 2 Point Value = 3 Point Value = 5 Age 41-60 Minor surgery BMI > 25 kg/m2 Swollen legs Varicose veins or History of unexplained or recurrent spontaneous Oral contraceptives or hormone replacement Sepsis (< 1 month) Serious lung disease, including pneumonia (< 1 month) Abnormal pulmonary function Acute myocardial infarction Congestive heart failure (< 1 month) History of inflammatory bowel disease Medical patient at bed rest Age 61-74 Arthroscopic surgery Major open surgery (> 45 min) Laparoscopic surgery (> 45 min) Malignancy Confined to bed (> 72 hours) Immobilizing plaster cast Central venous access Age >= 75 History of VTE Family history of VTE Factor V Leiden Prothrombin [id number] Lupus anticoagulant Anticardiolipin antibodies Elevated serum homocysteine Heparin-induced thrombocytopenia Other congenital or acquired thrombophilia Stroke (< 1 month) Elective arthroplasty Hip, pelvis, or leg fracture Acute spinal cord injury (< 1 month) Prophylaxis Regimen: Total Risk Factor Score Risk Level Prophylaxis Regimen 0-1 Low Early ambulation 2 Moderate Order ONE of the following: *Sequential Compression Device (SCD) *Heparin 5000 units SQ BID 3-4 Higher Order ONE of the following medications: *Heparin 5000 units SQ TID *Enoxaparin/Lovenox 40 mg SQ daily (WT < 150 kg, CrCl > 30 mL/min) *Enoxaparin/Lovenox 30 mg SQ daily (WT < 150 kg, CrCl > 10-29 mL/min) *Enoxaparin/Lovenox 30 mg SQ BID (WT < 150 kg, CrCl > 30 mL/min) AND/OR *Sequential Compression Device (SCD) 5 or more Highest Order ONE of the following medications: *Heparin 5000 units SQ TID (Preferred with Epidurals) *Enoxaparin/Lovenox 40 mg SQ daily (WT < 150 kg, CrCl > 30 mL/min) *Enoxaparin/Lovenox 30 mg SQ daily (WT < 150 kg, CrCl > 10-29 mL/min) *Enoxaparin/Lovenox 30 mg SQ BID (WT < 150 kg, CrCl > 30 mL/min) AND *Sequential Compression Device (SCD) Assessment and Plan - Plan 22 yo S/P emergent c/s 08/01/18 with sever abdominal pain likely due to rectus abdominal hematoma. Plan to admit for observation. Abdominal pain - CT shows rectus abdominal hematoma. - IV pain medication for pain management ordered - plan to discharge when pain is managed with transition to PO. Fluid, electrolyte, nutrition - PO intake adequate - electrolyte replace as needed. - normal diet
[2018-08-14] MEDS ORDERED: Docusate Sodium 100 MG Capsule PO PRN (11:38)
[2018-08-14] MEDS ORDERED: Acetaminophen 325 MG Tablet PO PRN (11:38)
[2018-08-14] MEDS ORDERED: Ketorolac Inj 30 MG/ML (IVP) Vial IV.PUSH PRN (11:38)
[2018-08-14] MEDS ORDERED: Promethazine 25 MG Supp RECTAL PRN (11:38)
[2018-08-14] MEDS ORDERED: Morphine Sulfate Inj 8 MG/ML Vial IV.PUSH PRN (11:47)
--- NOTE | 2018-08-14 12:09 | P.OBGPN ---
Attending addendum note Patient is a 22-year-old black female para 2 who is 12 days status post section for failed , she did well with surgery was discharged home and yesterday started having severe upper abdominal pain. She was at the super[place] and leaned over onto the grocery cart and said it started hurting after that and she is gotten worse. She came to the emergency room that evening was given medication and sent home. Patient has a history of not taking her pain medication even after her and after last night and so the pain seemed to have just worsened. She presents here for evaluation with severe upper abdominal pain. CT scan done last night shows a 6 cm abdominal wall hematoma. Is likely that she had some fragile to slightly injured vessels into her rectus muscle from the and when she leaned on the count of the cart or put pressure on that it probably started bleeding some and has bled into the rectus muscle. She is experiencing too much pain to be discharged home at this time and will admit for pain management Exam-abdomen slightly distended uterus just below the umbilicus. Pfannenstiel incision well-healed and is totally normal. She has no complaints of pain in the lower pelvis particularly around the incision is mainly upper abdominal. She has positive bowel sounds no masses palpable she is 2-3+ tender to palpation with no rebound tenderness Impression-rectus muscle hematoma after section 12 days ago with resulting abdominal pain Plan-admit for pain management, serial hematocrits to make sure this is not continued bleeding and if needed repeat CT to make sure this 6 cm area has not increased in size
[2018-08-14] MEDS: Ibuprofen 600 MG Tablet PO SCH ×2 (15:19→21:44)
[2018-08-14] MEDS ORDERED: Zolpidem Tartrate 5 MG Tablet PO PRN (21:00)
[2018-08-14 23:33] VITALS: BP 111/59; PULSE 101; RESP 20; TEMP 98.8; O2SAT 98
== END 2018-08-15 00:10 | disposition home or self-care (01) ==
LOC: HOBG 09:21 → HCIS 11:10 → INTOOBSV 11:10 → NEPGCP 13:16 → N06 19:10
PROVIDERS: ADMIT Obstetrics & Gynecology; ATTEND Obstetrics & Gynecology

== ENCOUNTER 2018-08-23 17:46 | Inpatient (IN) ==
--- NOTE | 2018-08-23 18:58 | ED ---
HPI General Chief complaint: Recheck/Abnormal Lab/Rx Stated complaint: Post problems Time Seen by Provider: 08/23/18 18:06 Source: patient and RN notes reviewed Mode of arrival: ambulatory Limitations: no limitations History of Present Illness HPI narrative: 22-year-old female presents to the emergency department for evaluation of abdominal pain after . Patient is August 01. She was seen here on August 13, [address] scan completed[address] scan showed abnormal thickening in the lower left rectus musculature measuring up to 6.4 similar thickness, most characteristic of a rectus hematoma and/or complex seroma, subcutaneous edema and soft tissue swelling the lower anterior abdomen characteristic of recent section, small amount of free fluid in the pelvis, no free air, mild ileus. Patient is followed up the next day with OB hospitalist. She states that they have were going to admit her, but she declined states she can take pain medication at home. She returns today reporting increased swelling in the left abdomen, worsening pain. Moderate severity. She last took her Percocet approximately 5 hours ago for pain. Location: abdomen Radiation: non-radiation Severity: moderate Severity scale (1-10): 8 Quality: aching Pain Consistency: constant Relieving factors: none Exacerbating factors: none Associated symptoms: Reports denies other symptoms Related Data Home Medications Medication Instructions Recorded Confirmed oxycodone-acetaminophen [Percocet] 1 tab PO Q4-6H 08/23/18 08/23/18 Previous Rx's Medication Instructions Recorded ferrous sulfate [iron] 325 mg PO BID 30 Days #60 tab 08/04/18 ibuprofen 800 mg PO Q6H PRN 30 Days #30 tab 08/04/18 tramadol [Ultram] 50 mg PO Q8H PRN #10 tab 08/13/18 Allergies Allergy/AdvReac Type Severity Reaction Status Date / Time penicillin G Allergy Mild Rash Verified 08/13/18 18:49 Review of Systems ROS: all other systems reviewed are negative [facility] Social History Social History Substance History: No History of Abuse Second Hand Smoke Exposure: No Smoking Status: Never smoker How Often Do You Have a Drink Containing Alcohol: Never Recent Travel in [facility] within the Last 8 Weeks: No Recent Out of Country Travel within the Last 8 Weeks: No Immunization History Tetanus Immunization: >5 Years Exam Narrative Exam Narrative: GENERAL: Well-nourished, well-developed female patient, ambulatory. Afebrile. SKIN: Focused skin assessment warm/dry. No erythema or drainage over incision HEAD: Normocephalic. Atraumatic. EYES: No scleral icterus. No injection or drainage. NECK: Supple, trachea midline. No JVD or lymphadenopathy. CARDIOVASCULAR: Regular rate and rhythm without murmurs, gallops, or rubs. RESPIRATORY: Breath sounds equal bilaterally. No accessory muscle use. Lung sounds are clear to auscultation GASTROINTESTINAL: Abdomen firm on left side, tender to palpation MUSCULOSKELETAL: No cyanosis, or edema. BACK: Nontender without obvious deformity. No CVA tenderness. Course Initial Documented Vital Signs Temperature 99.0 F 08/23/18 17:51 Pulse Rate 104 H 08/23/18 17:51 Respiratory Rate 20 08/23/18 17:51 Blood Pressure 113/66 08/23/18 17:51 Pulse Oximetry 100 08/23/18 17:51 Last Documented Vital Signs Temperature 102.1 F H 08/24/18 00:00 Pulse Rate 107 H 08/24/18 00:00 Respiratory Rate 18 08/24/18 00:00 Blood Pressure 111/57 L 08/24/18 00:00 Pulse Oximetry 98 08/24/18 00:00 Medical Decision Making MDM Narrative Medical decision making narrative: 32-year-old female presents to the emergency department for evaluation of hematoma to the lower abdomen after on August 01, 2018. IV access obtained. CBC, CMP, PTT, PT/INR ordered and pending. I contacted OB hospitalist spoon maker, Dr. March, who examined patient previously. He will come to the emergency department and evaluate the patient. CBC shows leukocytosis 19.2. CMP shows hypokalemia 2.9. PTT is 28.5. PT/INR is 13.0/1.3. Dr. chappell came and examined patient agrees with CT scan due to leukocytosis and pain. CT abdomen/pelvis with IV contrast is ordered and shows Increase in size of lower left rectus complex hematoma now measuring up to 11.2 x 8.1 cm; Multiloculated fluid collection above and to the left of the uterus within the abdomen measuring up to 6.7 x 14 cm and an additional loculated fluid collection in the deep pelvis measuring 5.8 cm in diameter. These probably represent complex hematomas although cannot exclude infection. I spoke to Dr. March who agrees on admission for patient. He recommends gentamicin, Flagyl. Rocephin is also added. Lactic acid is ordered and blood cultures x2 are ordered. Patient is admitted to Dr. March. Medical Screen Exam Complete: Yes Emergency Medical Condition: Yes Differential Diagnosis Differential Diagnosis: abdominal wall hematoma vs. endometritis vs. uterine rupture vs. abscess Medical Records Medical records reviewed: Yes I reviewed the patient's medical records. Lab Data Result diagrams: 08/23/18 18:00 08/23/18 18:00 Lab Results 08/23/18 08/23/18 08/23/18 Range/Units 18:00 18:00 18:00 WBC 19.2 H (4.0-11.0) th/mm3 RBC 3.65 L (4.00-5.30) mil/mm3 Hgb 9.4 L (11.6-15.3) gm/dL Hct 29.1 L (35.0-46.0) % MCV 79.6 L (80.0-100.0) fL MCH 25.8 L (27.0-34.0) pg MCHC 32.3 (32.0-36.0) % RDW 16.3 (11.6-17.2) % Plt Count 597 H D (150-450) th/mm3 MPV 7.2 (7.0-11.0) fL Neut % (Auto) 85.3 H (16.0-70.0) % Lymph % (Auto) 9.6 (9.0-44.0) % Mcduffie % (Auto) 4.8 (0.0-8.0) % Eos % (Auto) 0.2 (0.0-4.0) % Baso % (Auto) 0.1 (0.0-2.0) % Neut # (Auto) 16.4 H (1.8-7.7) th/mm3 Lymph # (Auto) 1.8 (1.0-4.8) th/mm3 Mcduffie # (Auto) 0.9 (0.0-0.9) th/mm3 Eos # (Auto) 0.0 (0.0-0.4) th/mm3 Baso # (Auto) 0.0 (0.0-0.2) th/mm3 WBC Differential . Differential Comment Auto diff final PT 13.0 H (9.8-11.6) sec INR 1.3 Ratio APTT 28.5 (24.3-30.1) sec Sodium 142 (136-145) meq/L Potassium 2.9 L* (3.5-5.1) meq/L Chloride 104 (98-107) meq/L Carbon Dioxide 29.8 (21.0-32.0) meq/L Anion Gap 8 (5-15) meq/L BUN 5 L (7-18) mg/dL Creatinine 0.80 (0.50-1.00) mg/dL Estimated GFR Greater than 89 (>89) mL/min Random Glucose 98 (74-106) mg/dL Lactic Acid (0.4-2.0) mmol/L Calcium 8.2 L (8.5-10.1) mg/dL Total Bilirubin 0.3 (0.2-1.0) mg/dL AST 12 L (15-37) U/L ALT 9 L (10-53) U/L Alkaline Phosphatase 102 (45-117) U/L Total Protein 7.4 (6.4-8.2) g/dL Albumin 2.3 L (3.4-5.0) g/dL Urine Color (Yellw/Straw) Urine Clarity (Clear) Urine pH (5.0-8.5) Ur Specific Isabella (1.002-1.035) Urine Protein (Neg-Trace) mg/dL Urine Glucose (UA) (Negative) mg/dL Urine Ketones (Negative) mg/dL Urine Occult Blood (Negative) Urine Nitrate (Negative) Urine Bilirubin (Negative) Urine Urobilinogen (Less than 2) mg/dL Ur Leukocyte Esterase (Negative) Urine RBC (0-3) /hpf Urine WBC (0-5) /hpf Ur Squamous Epith Cells (0-5) /hpf Urine Bacteria (None) /hpf Urine Mucus (Occasional) /lpf Micro UA Comment Ur Microscopic Review Urine Culture Comments 08/23/18 08/24/18 Range/Units 21:28 00:15 WBC (4.0-11.0) th/mm3 RBC (4.00-5.30) mil/mm3 Hgb (11.6-15.3) gm/dL Hct (35.0-46.0) % MCV (80.0-100.0) fL MCH (27.0-34.0) pg MCHC (32.0-36.0) % RDW (11.6-17.2) % Plt Count (150-450) th/mm3 MPV (7.0-11.0) fL Neut % (Auto) (16.0-70.0) % Lymph % (Auto) (9.0-44.0) % Mcduffie % (Auto) (0.0-8.0) % Eos % (Auto) (0.0-4.0) % Baso % (Auto) (0.0-2.0) % Neut # (Auto) (1.8-7.7) th/mm3 Lymph # (Auto) (1.0-4.8) th/mm3 Mcduffie # (Auto) (0.0-0.9) th/mm3 Eos # (Auto) (0.0-0.4) th/mm3 Baso # (Auto) (0.0-0.2) th/mm3 WBC Differential Differential Comment PT (9.8-11.6) sec INR Ratio APTT (24.3-30.1) sec Sodium (136-145) meq/L Potassium (3.5-5.1) meq/L Chloride (98-107) meq/L Carbon Dioxide (21.0-32.0) meq/L Anion Gap (5-15) meq/L BUN (7-18) mg/dL Creatinine (0.50-1.00) mg/dL Estimated GFR (>89) mL/min Random Glucose (74-106) mg/dL Lactic Acid 1.4 (0.4-2.0) mmol/L Calcium (8.5-10.1) mg/dL Total Bilirubin (0.2-1.0) mg/dL AST (15-37) U/L ALT (10-53) U/L Alkaline Phosphatase (45-117) U/L Total Protein (6.4-8.2) g/dL Albumin (3.4-5.0) g/dL Urine Color Yellow (Yellw/Straw) Urine Clarity Hazy H (Clear) Urine pH 5.0 (5.0-8.5) Ur Specific Isabella 1.058 H (1.002-1.035) Urine Protein 30 H (Neg-Trace) mg/dL Urine Glucose (UA) Negative (Negative) mg/dL Urine Ketones Negative (Negative) mg/dL Urine Occult Blood Moderate H (Negative) Urine Nitrate Negative (Negative) Urine Bilirubin Negative (Negative) Urine Urobilinogen Less than 2 (Less than 2) mg/dL Ur Leukocyte Esterase Negative (Negative) Urine RBC 4 H (0-3) /hpf Urine WBC 21 H (0-5) /hpf Ur Squamous Epith Cells 1 (0-5) /hpf Urine Bacteria Rare H (None) /hpf Urine Mucus Few H (Occasional) /lpf Micro UA Comment Culture indicated Ur Microscopic Review Not Reportable Urine Culture Comments Culture indicated Imaging Data Radiologist's impression: Abdomen/Pelvis CT 08/23/18 19:19 CONCLUSION: 1. Increase in size of lower left rectus complex hematoma now measuring up to 11.2 x 8.1 cm. 2. Multiloculated fluid collection above and to the left of the uterus within the abdomen measuring up to 6.7 x 14 cm and an additional loculated fluid collection in the deep pelvis measuring 5.8 cm in diameter. These probably represent complex hematomas although cannot exclude infection. Discharge Plan Discharge Disposition Patient Disposition: 30 Still Patient Discharge Details Diagnosis: Abdominal abscess, Hematoma of abdominal wall Physicians Team ED Provider: Rodney Johnson ED Midlevel Provider: Vandana Dave Primary Care Provider: Primary Care Belinda Steinberg Attending Provider: Jose L March Other Providers: [facility],Insurance Status ED Status: Left Department Discharge Information Discharge Date/Time: 08/23/18 23:27
[2018-08-23 19:06] LABS: Baso % (Auto) 0.1 % (0.0-2.0); Eos % (Auto) 0.2 % (0.0-4.0); Hematocrit 29.1 % (35.0-46.0); Hemoglobin 9.4 gm/dL (11.6-15.3); Lymph # (Auto) 1.8 th/mm3 (1.0-4.8); Lymph % (Auto) 9.6 % (9.0-44.0); Mean Corpuscular HGB Conc 32.3 % (32.0-36.0); Mean Corpuscular Hemoglobin 25.8 pg (27.0-34.0); Mean Corpuscular Volume 79.6 fL (80.0-100.0); Mean Platelet Volume 7.2 fL (7.0-11.0); Mono # (Auto) 0.9 th/mm3 (0.0-0.9); Mono % (Auto) 4.8 % (0.0-8.0); Neut # (Auto) 16.4 th/mm3 (1.8-7.7); Neut % (Auto) 85.3 % (16.0-70.0); Platelet Count 597 th/mm3 (150-450); Red Blood Count 3.65 mil/mm3 (4.00-5.30); Red Cell Distribution Width 16.3 % (11.6-17.2); White Blood Count 19.2 th/mm3 (4.0-11.0)
[2018-08-23 19:16] LABS: Activated Partial Thrombo Time 28.5 sec (24.3-30.1); INR 1.3 Ratio
[2018-08-23] MEDS ORDERED: Morphine Inj 4 MG/ML Vial IV.PUSH ONE (19:23)
[2018-08-23] MEDS ORDERED: Sod Chloride 0.9% Inj 1,000 ML IV.SIG ONE (19:23)
[2018-08-23 19:31] LABS: Alanine Aminotransferase 9 U/L (10-53); Albumin 2.3 g/dL (3.4-5.0); Alkaline Phosphatase 102 U/L (45-117); Anion Gap 8 meq/L (5-15); Aspartate Aminotransferase 12 U/L (15-37); Blood Urea Nitrogen 5 mg/dL (7-18); Calcium 8.2 mg/dL (8.5-10.1); Carbon Dioxide 29.8 meq/L (21.0-32.0); Chloride 104 meq/L (98-107); Glomerular Filtration Rate Greater Than 89 mL/min (>89); Glucose,Random 98 mg/dL (74-106); Sodium 142 meq/L (136-145); Total Protein 7.4 g/dL (6.4-8.2)
[2018-08-23 19:36] LABS: Potassium 2.9 meq/L (3.5-5.1)
--- NOTE | 2018-08-23 20:50 | CT ---
EXAM DATE: 08/23/2018 8:41 PM EDT AGE/SEX: 22 years / Female INDICATIONS: Increased pain and swelling at site 10 days ago. Evaluate rectus sheath hemat jamin. CLINICAL DATA: This is the patient's subsequent encounter. Patient reports that signs and symptoms h ave been present for 1 week and indicates a pain score of 7/10. MEDICAL/SURGICAL HISTORY: None. Colon resection. ORAL CONTRAST: No oral contrast ingested. RADIATION DOSE: 13.61 CTDI (mGy) COMPARISON: [facility] [place], CT ABDOMEN & PELVIS W CONTRAST, 08/13/2018. . TECHNIQUE: Multiple contiguous axial images were obtained through the abdomen and pelvis following b olus infusion of 95 ml Omnipaque 350 (iohexol) nonionic water-soluble contrast as a single exam dos e. No oral contrast ingested. Using automated exposure control and adjustment of the mA and/or kV ac cording to patient size, radiation dose was kept as low as reasonably achievable to obtain optimal di agnostic quality images. DICOM format image data is available electronically for review and comparis on. FINDINGS: There is a subacute complex lower left rectus hematoma now measuring up to 8.1 cm in thickness and 11 .2 cm in oblique AP diameter. This is increased in size from previous thickness of 6.4 cm. There is s ome edema in the surrounding soft tissues. There is also now a complex bilobed fluid collection with mildly enhancing rim in the left lower quadrant extending above the uterus measuring up to 14 cm in m aximal diameter and 6.7 cm in short axis diameter. This probably also represents a complex hematoma b ut cannot exclude infection. Lung bases demonstrate some linear atelectasis. No acute findings in the liver, spleen, adrenals, kid neys or pancreas. Within the deep pelvis there is also some loculated fluid posterior superior to the bladder measuring 5.8 cm in diameter. CONCLUSION: 1. Increase in size of lower left rectus complex hematoma now measuring up to 11.2 x 8.1 cm. 2. Multiloculated fluid collection above and to the left of the uterus within the abdomen measuring up to 6.7 x 14 cm and an additional loculated fluid collection in the deep pelvis measuring 5.8 cm in diameter. These probably represent complex hematomas although cannot exclude infection. Electronically signed by: Vernon Mas MD 08/23/2018 8:49 PM EDT
[2018-08-23] MEDS ORDERED: GENTAMICIN IV.SIG ONE (21:13)
[2018-08-23] MEDS ORDERED: SODIUM CHLOR 0.9% IV.SIG ONE (21:13)
[2018-08-23] MEDS ORDERED: Ketorolac Inj 30 MG/ML (IVP) Vial IV.PUSH PRN (21:35)
[2018-08-23] MEDS ORDERED: Acetaminophen 325 MG Tablet PO PRN (21:35)
--- NOTE | 2018-08-23 22:01 | P.HPOB ---
History of Present Illness Primary Care Physician: No Primary Care Physician Chief Complaint: Abdominal pain 3 weeks after History of Present Illness: Patient is a 22-year-old white female now previous done on 2017 for distress. She presents the emergency room tonight for increasing abdominal pain. She was here approximately 1 week ago and was scanned and thought to have a 6 cm hematoma in the abdominal wall. She was admitted for pain control but left AMA when she could not have her breast- feeding baby in the room with her. She returns tonight for worsening pain. This evening patient had a repeat CT scan which shows the hematoma area in the abdominal wall enlarged 11 x 8 cm with fluid collections noted superior aspect of this area, and a fluid collection in the cul-de-sac as well. Her pain is increased on that left side and the abdomen is protruded out more distended than a week ago. She also is having constipation, denies vaginal bleeding or problems with her initial Pfannenstiel incision which is completely clean and dry Para: 2 (C-sections) : 2 - Inpatient Certification I certify that the inpatient services were ordered in accordance with Medicare regulations governing the order. This includes certification that hospital inpatient services are reasonable and necessary and in the case of services not specified as inpatient-only under 42 CFR 419.22(n), that they are appropriately provided as inpatient services in accordance to with the 2-midnight benchmark under 43 CFR 412.3(e) Estimated Total Length of Stay (Days): 3 Plans for Post Hospital Care: Home Review of Systems All other systems reviewed negative except as stated in [facility] - History History Provided By: Patient - Medical History Medical History: Medical History (Last Reviewed 08/23/18 @ 18:12 by Anne Velazquez) section wound complication - Surgical History Surgical History: Surgical History (Last Reviewed 08/23/18 @ 18:12 by Anne Velazquez) History of delivery - Tobacco History Second Hand Smoke Exposure: No Smoking Status: Never smoker - Alcohol History How Often Do You Have a Drink Containing Alcohol: Never - Substance Use History Substance History: No History of Abuse - Travel History Recent Travel in the [place] Within the Last 8 Weeks: No Recent Travel Out of the Country Within the Last 8 Weeks: No - Immunization History Tetanus Immunization: >5 Years Medications and Allergies Active Medications: Active Medications Acetaminophen (Tylenol) 650 mg PO Q6H PRN PRN Reason: PAIN 1-10 AND/OR FEVER >101F Enoxaparin Sodium (Lovenox Inj) 40 mg SQ Q24H JJ Gentamicin Sulfate 130 mg/ (Sodium Chloride) 103.25 mls @ 100 mls/hr IV.SIG ONCE ONE Stop: 08/23/18 22:14 Metronidazole/Sodium Chloride (Flagyl 500 Mg Inj) 100 mls @ 100 mls/hr IV.SIG ONCE ONE Stop: 08/23/18 22:17 Gentamicin Sulfate 400 mg/ (Sodium Chloride) 110 mls @ 110 mls/hr IV.SIG Q24H JJ Metronidazole/Sodium Chloride (Flagyl 500 Mg Inj) 100 mls @ 100 mls/hr IV.SIG Q8H JJ Potassium Chloride/Dextrose/Sod Cl (D5w/1/2ns + Kcl 20 Meq Inj) 1,000 mls @ 125 mls/hr IV.CONT .Q8H JJ Ibuprofen (Motrin) 800 mg PO Q4H PRN PRN Reason: PAIN 1-10 AND/OR FEVER >101F Ibuprofen (Motrin) 800 mg PO Q6H PRN PRN Reason: Acute Pain Ketorolac Tromethamine (Toradol Inj) 30 mg IV.PUSH Q6H PRN PRN Reason: PAIN SCALE 1 TO 10 Morphine Sulfate (Morphine Inj) 4 mg IV.PUSH Q2H PRN PRN Reason: BREAKTHROUGH PAIN Ondansetron HCl (Zofran Inj) 4 mg IV.PUSH Q6H PRN PRN Reason: NAUSEA OR VOMITING Sodium Chloride (Ns Flush) 2 ml IV.FLUSH BID JJ Sodium Chloride (Ns Flush) 2 ml IV.FLUSH UNSCH PRN PRN Reason: FLUSH AFTER USING IV ACCESS Allergies Allergy/AdvReac Type Severity Reaction Status Date / Time penicillin G Allergy Mild Rash Verified 08/13/18 18:49 Home Medications Medication Instructions Recorded Confirmed Type oxycodone-acetaminophen [Percocet] 1 tab PO Q4-6H 08/23/18 08/23/18 History Exam Vital signs: Vital Signs 08/23/18 17:51 Temperature 99.0 F Pulse Rate 104 H Respiratory Rate 20 Blood Pressure 113/66 Pulse Oximetry 100 Intake & Output 08/23/18 08/23/18 08/24/18 06:59 18:59 06:59 Weight 79.379 kg Narrative: GENERAL: Well-nourished, well-developed patient. SKIN: Warm and dry. HEAD: Normocephalic and atraumatic. EYES: No scleral icterus. No injection or drainage. ENT: No nasal drainage noted. Mucous membranes pink. Airway patent. NECK: Supple, trachea midline. No JVD. CARDIOVASCULAR: Regular rate and rhythm without murmurs, gallops, or rubs. RESPIRATORY: Breath sounds equal bilaterally. No accessory muscle use. BREASTS: Bilateral exam showed no masses , no retractions, no nipple discharge. ABDOMEN/GI: Abdomen soft, tender over the left aspect of the abdomen periumbilical area is protruding out and is 2+ tender whereas the other side of the abdomen is not distended and not tender her Pfannenstiel incision is clean and dry within normal limits and under the pannus, bowel sounds present, no rebound, no guarding EXTREMITIES: No cyanosis or edema. BACK: Nontender without obvious deformity. No CVA tenderness. NEUROLOGICAL: Awake and alert. Motor and sensory grossly within normal limits. Five out of 5 muscle strength in all muscle groups. Normal speech. Results - Labs CBC & Chem 7: 08/23/18 18:00 08/23/18 18:00 Labs: Laboratory Results - last 24 hr 08/23/18 08/23/18 08/23/18 18:00 18:00 18:00 WBC 19.2 H RBC 3.65 L Hgb 9.4 L Hct 29.1 L MCV 79.6 L MCH 25.8 L MCHC 32.3 RDW 16.3 Plt Count 597 H D MPV 7.2 Neut % (Auto) 85.3 H Lymph % (Auto) 9.6 Cuming % (Auto) 4.8 Eos % (Auto) 0.2 Baso % (Auto) 0.1 Neut # (Auto) 16.4 H Lymph # (Auto) 1.8 Cuming # (Auto) 0.9 Eos # (Auto) 0.0 Baso # (Auto) 0.0 WBC Differential . Differential Comment Auto diff final PT 13.0 H INR 1.3 APTT 28.5 Sodium 142 Potassium 2.9 L* Chloride 104 Carbon Dioxide 29.8 Anion Gap 8 BUN 5 L Creatinine 0.80 Estimated GFR Greater than 89 Random Glucose 98 Calcium 8.2 L Total Bilirubin 0.3 AST 12 L ALT 9 L Alkaline Phosphatase 102 Total Protein 7.4 Albumin 2.3 L - Imaging Impressions Abdomen/Pelvis CT 08/23/18 19:19 CONCLUSION: 1. Increase in size of lower left rectus complex hematoma now measuring up to 11.2 x 8.1 cm. 2. Multiloculated fluid collection above and to the left of the uterus within the abdomen measuring up to 6.7 x 14 cm and an additional loculated fluid collection in the deep pelvis measuring 5.8 cm in diameter. These probably represent complex hematomas although cannot exclude infection. Caprini VTE Risk Assessment Caprini VTE Risk Assessment: No/Low Risk (score <= 1) Caprini Risk Assessment Model: Point Value = 1 Point Value = 2 Point Value = 3 Point Value = 5 Age 41-60 Minor surgery BMI > 25 kg/m2 Swollen legs Varicose veins or History of unexplained or recurrent spontaneous Oral contraceptives or hormone replacement Sepsis (< 1 month) Serious lung disease, including pneumonia (< 1 month) Abnormal pulmonary function Acute myocardial infarction Congestive heart failure (< 1 month) History of inflammatory bowel disease Medical patient at bed rest Age 61-74 Arthroscopic surgery Major open surgery (> 45 min) Laparoscopic surgery (> 45 min) Malignancy Confined to bed (> 72 hours) Immobilizing plaster cast Central venous access Age >= 75 History of VTE Family history of VTE Factor V Leiden Prothrombin [id number] Lupus anticoagulant Anticardiolipin antibodies Elevated serum homocysteine Heparin-induced thrombocytopenia Other congenital or acquired thrombophilia Stroke (< 1 month) Elective arthroplasty Hip, pelvis, or leg fracture Acute spinal cord injury (< 1 month) Prophylaxis Regimen: Total Risk Factor Score Risk Level Prophylaxis Regimen 0-1 Low Early ambulation 2 Moderate Order ONE of the following: *Sequential Compression Device (SCD) *Heparin 5000 units SQ BID 3-4 Higher Order ONE of the following medications: *Heparin 5000 units SQ TID *Enoxaparin/Lovenox 40 mg SQ daily (WT < 150 kg, CrCl > 30 mL/min) *Enoxaparin/Lovenox 30 mg SQ daily (WT < 150 kg, CrCl > 10-29 mL/min) *Enoxaparin/Lovenox 30 mg SQ BID (WT < 150 kg, CrCl > 30 mL/min) AND/OR *Sequential Compression Device (SCD) 5 or more Highest Order ONE of the following medications: *Heparin 5000 units SQ TID (Preferred with Epidurals) *Enoxaparin/Lovenox 40 mg SQ daily (WT < 150 kg, CrCl > 30 mL/min) *Enoxaparin/Lovenox 30 mg SQ daily (WT < 150 kg, CrCl > 10-29 mL/min) *Enoxaparin/Lovenox 30 mg SQ BID (WT < 150 kg, CrCl > 30 mL/min) AND *Sequential Compression Device (SCD) Assessment and Plan - Diagnosis (1) Abscess of postoperative wound of abdominal wall Code(s): T81.49XA - Infection following a procedure, other surgical site, initial encounter Status: Acute (2) Hematoma of abdominal wall Code(s): S30.1XXA - Contusion of abdominal wall, initial encounter Status: Acute (3) Parametritis Code(s): N73.2 - Unspecified parametritis and pelvic cellulitis Status: Acute (4) History of delivery Code(s): Z98.891 - History of uterine scar from previous surgery Status: Acute - Plan Plan for this patient who is 3 weeks out from now with abdominal wall hematoma/abscess with parametritis in the pelvis and admission to the hospital for IV antibiotics broad-spectrum, electrolyte replacement as needed, IV fluid hydration, check CBC CMP
[2018-08-23] MEDS: Enoxaparin Inj 40 MG/0.4 ML Syringe SQ SCH (22:47)
[2018-08-23] MEDS: KCL 20 mEq/D5W/NaCl 0.45% Inj 1,000 ML IV.CONT SCH (23:40)
[2018-08-24] MEDS: Ibuprofen 600 MG Tablet PO PRN (00:05)
[2018-08-24] MEDS: SODIUM CHLOR 0.9% IV.SIG SCH (00:38)
[2018-08-24] MEDS: GENTAMICIN IV.SIG SCH (00:38)
[2018-08-24 00:39] LABS: Bacteria,Urine Rare /hpf; Bilirubin,Urine Negative (Negative); Clarity,Urine Hazy (Clear); Color,Urine Yellow (Yellw/Straw); Glucose,Urine (UA) Negative (Negative); Leukocyte Esterase,Urine Negative (Negative); Mucus,Urine Few /lpf (Occasional); Nitrite,Urine Negative (Negative); Specific Gravity,Urine 1.058 (1.002-1.035); Squamous Epithelial Cell,Urine 1 /hpf (0-5)
--- NOTE | 2018-08-24 08:42 | P.PNOB ---
Subjective Post op day: 24 Interval history: Hospital day 2 T-max-102.1 IV Flagyl/gentamicin This patient is 3 weeks out from section for failure to progress and nonreassuring heart rate tracing, she presents with increasing pain on the left side of the abdomen, CT scan shows an enlarging fluid-filled mass on that side now 8 x 11cm, week ago it was 6 cm and felt to be a hematoma, now seems to be transitioning to abdominal wall abscess, there is typical features for abscess with fluid-filled areas above the uterus adjacent to the abdominal wall inferior surface, and also fluid-filled area in the cul-de-sac. This may well represent a parametritis/pelvic abscess. Patient was sent a lot of pain on admission yesterday but seems to feel better today after IV antibiotic dosing and pain medication Objective Vital Signs/I&O: Vital Signs 08/23/18 17:51 08/23/18 23:26 08/24/18 00:00 Temperature 99.0 F 102.1 F H Pulse Rate 104 H 107 H Respiratory Rate 20 20 18 Blood Pressure 113/66 111/57 L Pulse Oximetry 100 98 08/24/18 00:07 08/24/18 04:00 Temperature 98.6 F Pulse Rate 88 Respiratory Rate 18 18 Blood Pressure 90/51 L Pulse Oximetry 96 Intake & Output 08/23/18 08/24/18 08/24/18 18:59 06:59 18:59 Intake Total 1410 / 1410 Output Total 300 / 300 Balance 1110 / 1110 Weight 79.379 kg 79.4 kg Intake: IV 1410 / 1410 Gentamicin Inj 400 MG In NS Inj 110 / 110 100 ML @ 110 mls/hr IV.SIG Q24H JJ Rx#:[id number] NS Inj 1,000 ML @ Wide Open IV. 1000 / 1000 SIG BOLUS ONE Rx#:[id number] Rocephin Inj 1,000 MG In NS Inj 100 / 100 100 ML @ 200 mls/hr IV.SIG ONCE ONE Rx#:[id number] Flagyl 500 MG Inj 100 ML @ 100 200 / 200 mls/hr IV.SIG Q8H JJ Rx#: [id number] Output: Urine 300 / 300 Other: Weight On Admission 79.379 kg Result Diagrams: 08/23/18 18:00 08/23/18 18:00 Objective Remarks: GENERAL: Well-nourished, well-developed patient. CARDIOVASCULAR: Regular rate and rhythm without murmurs, gallops, or rubs. RESPIRATORY: Breath sounds equal bilaterally. No accessory muscle use. ABDOMEN/GI: Abdomen soft, tender in the left side of the abdomen and periumbilical area there is a singular firm hot tender area at this patient's main problem and appears to be the area of infection and abscess, bowel sounds present. Incision: Clean, dry and intact. Fundus: Firm, non-tender at umbilicus. GENITOURINARY: Light to moderate bleeding. EXTREMITIES: No cyanosis or edema, non-tender, without signs of DVT. Medications and IVs: Active Medications Acetaminophen (Tylenol) 650 mg PO Q6H PRN PRN Reason: PAIN 1-10 AND/OR FEVER >101F Enoxaparin Sodium (Lovenox Inj) 40 mg SQ Q24H [facility] Last Admin: 08/23/18 22:47 Dose: 40 mg Gentamicin Sulfate 400 mg/ (Sodium Chloride) 110 mls @ 110 mls/hr IV.SIG Q24H [facility] Last Infusion: 08/24/18 01:38 Dose: Infused Metronidazole/Sodium Chloride (Flagyl 500 Mg Inj) 100 mls @ 100 mls/hr IV.SIG Q8H [facility] Last Infusion: 08/24/18 02:41 Dose: Infused Potassium Chloride/Dextrose/Sod Cl (D5w/1/2ns + Kcl 20 Meq Inj) 1,000 mls @ 125 mls/hr IV.CONT .Q8H [facility] Last Admin: 08/23/18 23:40 Dose: 125 mls/hr Ibuprofen (Motrin) 800 mg PO Q4H PRN PRN Reason: PAIN 1-10 AND/OR FEVER >101F Last Admin: 08/24/18 00:05 Dose: 800 mg Ibuprofen (Motrin) 800 mg PO Q6H PRN PRN Reason: Acute Pain Ketorolac Tromethamine (Toradol Inj) 30 mg IV.PUSH Q6H PRN PRN Reason: PAIN SCALE 1 TO 10 Last Admin: 08/23/18 23:37 Dose: 30 mg Morphine Sulfate (Morphine Inj) 4 mg IV.PUSH Q2H PRN PRN Reason: BREAKTHROUGH PAIN Ondansetron HCl (Zofran Inj) 4 mg IV.PUSH Q6H PRN PRN Reason: NAUSEA OR VOMITING Sodium Chloride (Ns Flush) 2 ml IV.FLUSH BID JJ Sodium Chloride (Ns Flush) 2 ml IV.FLUSH UNSCH PRN PRN Reason: FLUSH AFTER USING IV ACCESS Assessment and Plan - Diagnosis (1) Abscess of postoperative wound of abdominal wall Code(s): T81.49XA - Infection following a procedure, other surgical site, initial encounter Status: Acute (2) Hematoma of abdominal wall Code(s): S30.1XXA - Contusion of abdominal wall, initial encounter Status: Acute (3) Parametritis Code(s): N73.2 - Unspecified parametritis and pelvic cellulitis Status: Acute (4) History of delivery Code(s): Z98.891 - History of uterine scar from previous surgery Status: Acute - Plan Plan for this patient who is 3 weeks out from now with abdominal wall hematoma/abscess with parametritis in the pelvis and admission to the hospital for IV antibiotics broad-spectrum IV Flagyl 500 mg q. 8 and IV gentamicin 400 mg once every 24 hours, electrolyte replacement as needed, IV fluid hydration, check CBC CMP. Will likely ask [facility] to try and drain abscesses they can reach especially on the anterior abdominal wall tomorrow (2) Hematoma of abdominal wall Qualifiers: Encounter type: subsequent encounter Qualified Code(s): S30.1XXD - Contusion of abdominal wall, subsequent encounter
[2018-08-24] MEDS: Morphine Inj 4 MG/ML Vial IV.PUSH PRN (10:02)
[2018-08-24] MEDS: KCL 20 mEq/D5W/NaCl 0.45% Inj 1,000 ML IV.CONT SCH ×4 (10:03→23:00)
[2018-08-24 14:09] LABS: Eos % (Auto) 0.1 % (0.0-4.0); Hematocrit 26.7 % (35.0-46.0); Hemoglobin 8.7 gm/dL (11.6-15.3); Lymph # (Auto) 1.5 th/mm3 (1.0-4.8); Lymph % (Auto) 7.8 % (9.0-44.0); Mean Corpuscular HGB Conc 32.7 % (32.0-36.0); Mean Corpuscular Hemoglobin 26.1 pg (27.0-34.0); Mean Corpuscular Volume 79.8 fL (80.0-100.0); Mean Platelet Volume 7.1 fL (7.0-11.0); Mono % (Auto) 5.2 % (0.0-8.0); Neut # (Auto) 16.4 th/mm3 (1.8-7.7); Neut % (Auto) 86.9 % (16.0-70.0); Platelet Count 481 th/mm3 (150-450); Red Blood Count 3.35 mil/mm3 (4.00-5.30); Red Cell Distribution Width 16.5 % (11.6-17.2); White Blood Count 18.9 th/mm3 (4.0-11.0)
[2018-08-24 14:31] LABS: Albumin 1.9 g/dL (3.4-5.0); Anion Gap 9 meq/L (5-15); Aspartate Aminotransferase 9 U/L (15-37); Blood Urea Nitrogen 3 mg/dL (7-18); Calcium 7.9 mg/dL (8.5-10.1); Carbon Dioxide 28.1 meq/L (21.0-32.0); Chloride 107 meq/L (98-107); Glucose,Random 85 mg/dL (74-106); Potassium 3.2 meq/L (3.5-5.1); Sodium 144 meq/L (136-145)
[2018-08-24 14:34] LABS: Alanine Aminotransferase 7 U/L (10-53); Alkaline Phosphatase 90 U/L (45-117); Glomerular Filtration Rate Greater Than 89 mL/min (>89); Total Protein 6.5 g/dL (6.4-8.2)
[2018-08-24] MEDS: Enoxaparin Inj 40 MG/0.4 ML Syringe SQ SCH (22:25)
[2018-08-25] MEDS: GENTAMICIN IV.SIG SCH (00:47)
[2018-08-25] MEDS: SODIUM CHLOR 0.9% IV.SIG SCH (00:47)
[2018-08-25] MEDS: KCL 20 mEq/D5W/NaCl 0.45% Inj 1,000 ML IV.CONT SCH ×3 (03:00→22:07)
[2018-08-25] MEDS: Morphine Inj 4 MG/ML Vial IV.PUSH PRN ×3 (04:39→13:41)
--- NOTE | 2018-08-25 09:34 | P.PNOB ---
Subjective Post op day: 24 Interval history: 22-year-old female, postop day #24 from stat , admitted for fluid- filled mass 8 x 11 cm, enlarged from previous CT scan. Patient seen and examined bedside this morning by OB team. On arrival, the nurse is stating that the patient vomited 20 minutes ago and pus started coming out of the incision site. There is an open area of the incision, less than 1 cm with thick foul-smelling pus coming out. During the exam approximately 100 mL of pus was expressed. The patient was in acute pain so she was given morphine and Zofran. Objective Vital Signs/I&O: Vital Signs 08/24/18 12:00 08/24/18 16:00 08/24/18 20:00 Temperature 98.7 F 98.1 F 98.8 F Pulse Rate 82 98 H 91 H Respiratory Rate 18 18 20 Blood Pressure 99/54 L 104/55 L 101/57 L Pulse Oximetry 97 98 96 08/24/18 22:53 08/25/18 00:00 08/25/18 04:41 Temperature 99.6 F Pulse Rate 104 H Respiratory Rate 18 20 18 Blood Pressure 113/62 Pulse Oximetry 99 Intake & Output 08/24/18 08/25/18 08/25/18 18:59 06:59 18:59 Intake Total 2200 / 2200 1210 / 1210 1240 / 1240 Output Total 800 / 800 450 / 450 Balance 2200 / 2200 410 / 410 790 / 790 Weight 82.8 kg Intake: IV 2200 / 2200 1210 / 1210 1000 / 1000 D5W/1/2NS + KCL 20 mEq Inj , 1999 / 1999 1000 / 1000 1000 / 1000 000 ML @ 125 mls/hr IV.CONT . Q8H JJ Rx#:[id number] Gentamicin Inj 400 MG In NS Inj 110 / 110 100 ML @ 110 mls/hr IV.SIG Q24H JJ Rx#:[id number] Flagyl 500 MG Inj 100 ML @ 100 200 / 200 100 / 100 mls/hr IV.SIG Q8H JJ Rx#: [id number] Oral 240 / 240 Output: Urine 800 / 800 450 / 450 Other: Date of Last Bowel Movement 08/22/18 Result Diagrams: 08/24/18 13:00 08/24/18 13:00 Objective Remarks: GENERAL: Well-nourished, well-developed patient. CARDIOVASCULAR: Regular rate and rhythm without murmurs, gallops, or rubs. RESPIRATORY: Breath sounds equal bilaterally. No accessory muscle use. ABDOMEN/GI: Abdomen soft, non-tender, bowel sounds present. Incision: <1cm opening with thick pus protruding (100ml), enlarged to 3cm opening with pressure. wound left open with bandage covering to continue to soak drainage. Q-tip used to explore area; abscess extended posteriorly and only minimally anteriorly. Fundus: Firm, non-tender at umbilicus. GENITOURINARY: Light to moderate bleeding. EXTREMITIES: No cyanosis or edema, non-tender, without signs of DVT. Medications and IVs: Active Medications Acetaminophen (Tylenol) 650 mg PO Q6H PRN PRN Reason: PAIN 1-10 AND/OR FEVER >101F Enoxaparin Sodium (Lovenox Inj) 40 mg SQ Q24H [facility] Last Admin: 08/24/18 22:25 Dose: Not Given Gentamicin Sulfate 400 mg/ (Sodium Chloride) 110 mls @ 110 mls/hr IV.SIG Q24H [facility] Last Infusion: 08/25/18 01:47 Dose: Infused Metronidazole/Sodium Chloride (Flagyl 500 Mg Inj) 100 mls @ 100 mls/hr IV.SIG Q8H [facility] Last Admin: 08/25/18 08:46 Dose: 100 mls/hr Potassium Chloride/Dextrose/Sod Cl (D5w/1/2ns + Kcl 20 Meq Inj) 1,000 mls @ 125 mls/hr IV.CONT .Q8H [facility] Last Admin: 08/25/18 08:48 Dose: 125 mls/hr Ibuprofen (Motrin) 800 mg PO Q4H PRN PRN Reason: PAIN 1-10 AND/OR FEVER >101F Last Admin: 08/24/18 00:05 Dose: 800 mg Ibuprofen (Motrin) 800 mg PO Q6H PRN PRN Reason: Acute Pain Last Admin: 08/24/18 22:23 Dose: 800 mg Ketorolac Tromethamine (Toradol Inj) 30 mg IV.PUSH Q6H PRN PRN Reason: PAIN SCALE 1 TO 10 Last Admin: 08/23/18 23:37 Dose: 30 mg Morphine Sulfate (Morphine Inj) 4 mg IV.PUSH Q2H PRN PRN Reason: BREAKTHROUGH PAIN Last Admin: 08/25/18 08:41 Dose: 4 mg Ondansetron HCl (Zofran Inj) 4 mg IV.PUSH Q6H PRN PRN Reason: NAUSEA OR VOMITING Last Admin: 08/25/18 08:43 Dose: 4 mg Sodium Chloride (Ns Flush) 2 ml IV.FLUSH BID JJ Last Admin: 08/24/18 21:00 Dose: 2 ml Sodium Chloride (Ns Flush) 2 ml IV.FLUSH UNSCH PRN PRN Reason: FLUSH AFTER USING IV ACCESS Assessment and Plan - Plan Plan for this patient who is 3 weeks out from now with abdominal wall hematoma/abscess with parametritis in the pelvis and admission to the hospital for IV antibiotics broad-spectrum IV Flagyl 500 mg q. 8 and IV gentamicin 400 mg once every 24 hours, electrolyte replacement as needed, IV fluid hydration, check CBC CMP. Will likely let the abscess continued to drain over the day today, and obtain CT at some point tonight or tomorrow to evaluate remaining fluid. We will then consult IR for possible drainage of remaining fluid. Abdominal wall abscess - Monitor drainage - Consider f/u CT and IR consult Sepsis criteria met: tachycardic, WBC 19, source: abdominal infection, febrile at 00:00 at 102.1 - Cont Flagyl 500mg IV q8h - Cont Gent 400mg IV q24h - Will consider broadening coverage if needed - f/u abdominal cx - blood cx negative x 1 day Anemia - Will d/c with Fe/Vit C/Colace Hypokalemia (3.2) - Cont to monitor, f/u BMP
[2018-08-25] MEDS ORDERED: fentaNYL Citrate Inj 250 MCG/5 ML Ampul ONE (14:16)
--- NOTE | 2018-08-25 14:56 | P.RAD ---
Post Procedure Progress Note - Pre Procedure Diagnosis (1) Abdominal abscess - Post Procedure Diagnosis (1) Abdominal abscess - Procedure Information Procedure Date: 08/25/18 Supervising Radiologist: Drew Houston MD Estimated blood loss (mL): 0 Anesthesia: Local, Conscious Sedation - Plan of Activity Patient to Unit: Nursing Unit Patient Condition: Good Additional Comments: Lower pelvic incisional abbess has drained through the abdominal wall. 10French tube placed in the largest abdominal collection 200cc of puss removed. catheter in good position See PACS Report for procedural detail/treatment.
--- NOTE | 2018-08-25 15:55 | CT ---
EXAM DATE: 08/25/2018 3:19 PM EDT AGE/SEX: 22 years / Female INDICATIONS: Abscess. CLINICAL DATA: This is the patient's initial encounter. Patient reports that signs and symptoms have been present for 1 day and indicates a pain score of 0/10. MEDICAL/SURGICAL HISTORY: None. section. COMPARISON: No prior exams available for comparison. BIOPSY SITE: Abdominal Abscess MEDICATION(S): 4mg midazolam (Versed) IV 200mcg fentanyl (Sublimaze) IV DEVICE(S): 10 Fr Skater FLUID: Total volume of 140 of dubose fluid was removed. Fluid was discarded.. . . PROCEDURE : CT guided drainage of the Abdominal Abscess. Conscious sedation with continuous EKG and oximetry monitoring. EKG and oximetry remained stable throughout the procedure. The risks, benefits and alternatives to the procedure were explained and verbal and written consent w as obtained. Using automated exposure control and adjustment of the mA and/or kV according to patient size, radiation dose was kept as low as reasonably achievable to obtain optimal diagnostic quality i mages. The site was prepped in sterile fashion. Full sterile technique was used, including cap, ma sk, sterile gloves and gown and a large sterile sheet. Hand hygiene and 2% chlorhexidine and/or beta dine/alcohol prep was utilized per protocol for cutaneous antisepsis. The skin and subcutaneous tiss ues were infiltrated with local anesthetic solution. DICOM format image data is available electronic ally for review and comparison. FINDINGS: Using CT guidance the abscess in the left lower abdomen was localized. A blunt needle was advanced do wn into the abscess. There was immediate return of purulent material. A 0.035 Masters wire was advanced into the collection. A 10 Pashto catheter was advanced over the wire. Approximately 200 cc of purule nt material was removed. The patient tolerated the procedure well and there were no complications. T he patient tolerated the procedure well and there were no complications. The patient was sent to post anesthesia recovery in stable condition. CONCLUSION: 1. Uncomplicated CT guided drainage. Electronically signed by: Drew Houston MD 08/25/2018 3:54 PM EDT
[2018-08-25] MEDS ORDERED: Vancomycin Consult Pharmacy OTHER PRN (18:22)
--- NOTE | 2018-08-25 18:22 | P.CONID ---
History of Present Illness Service: ID Consult date: 08/25/18 Requesting Physician: Jacoby Cole Reason for Consult: POD 22 s/p , multiloculated intrabdominal collection and left lowe Primary Care Provider: No Primary Care Physician Chief Complaint: Abdominal pain 3 weeks after History of Present Illness: 22 F sp Csection August 01 h/o prior Csection developped pain on Aug [address] A/P with fluid collection Pt was diagnosed with hematoma She came back next day and declined admission Pt returened to ER with worsening LLQ pain , drainage from inciiosn and fever up to 102-103 WBC in [address] A/P showed Multiloculated fluid collection above and to the left of the uterus within the abdomen measuring up to 6.7 x 14 cm and an additional loculated fluid collection in the deep pelvis measuring 5.8 cm in diameter S/P IR procedure by Dr Houston: large amopunt of pure pus was drainaed today: Gstain with GNBs No fever WBC 19 K today Pt is on gent+ flagyl Review of Systems All other systems reviewed negative except as stated in HPI PMFSH - History History Provided By: Patient, Family Member - Medical History Medical History: Medical History (Last Reviewed 08/25/18 @ 18:12 by Nimo Burton MD) section wound complication - Surgical History Surgical History: Surgical History (Last Reviewed 08/25/18 @ 18:12 by Nimo Burton MD) History of delivery - Family History Family History: Family History (Last Updated 08/25/18 @ 18:13 by Nimo Burton MD) Other No pertinent family history - Social History I have reviewed the patient's Social History: Yes - Tobacco History Second Hand Smoke Exposure: No Smoking Status: Never smoker - Alcohol History How Often Do You Have a Drink Containing Alcohol: Never - Substance Use History Substance History: No History of Abuse - Travel History Recent Travel in the [place] Within the Last 8 Weeks: No Recent Travel Out of the Country Within the Last 8 Weeks: No - Immunization History Tetanus Immunization: >5 Years Medications and Allergies Active Medications: Active Medications Acetaminophen (Tylenol) 650 mg PO Q6H PRN PRN Reason: PAIN 1-10 AND/OR FEVER >101F Enoxaparin Sodium (Lovenox Inj) 40 mg SQ Q24H [facility] Last Admin: 08/24/18 22:25 Dose: Not Given Gentamicin Sulfate 400 mg/ (Sodium Chloride) 110 mls @ 110 mls/hr IV.SIG Q24H [facility] Last Infusion: 08/25/18 01:47 Dose: Infused Metronidazole/Sodium Chloride (Flagyl 500 Mg Inj) 100 mls @ 100 mls/hr IV.SIG Q8H JJ Last Infusion: 08/25/18 13:46 Dose: Infused Potassium Chloride/Dextrose/Sod Cl (D5w/1/2ns + Kcl 20 Meq Inj) 1,000 mls @ 125 mls/hr IV.CONT .Q8H [facility] Last Admin: 08/25/18 08:48 Dose: 125 mls/hr Ibuprofen (Motrin) 800 mg PO Q4H PRN PRN Reason: PAIN 1-10 AND/OR FEVER >101F Last Admin: 08/24/18 00:05 Dose: 800 mg Ibuprofen (Motrin) 800 mg PO Q6H PRN PRN Reason: Acute Pain Last Admin: 08/24/18 22:23 Dose: 800 mg Ketorolac Tromethamine (Toradol Inj) 30 mg IV.PUSH Q6H PRN PRN Reason: PAIN SCALE 1 TO 10 Last Admin: 08/23/18 23:37 Dose: 30 mg Morphine Sulfate (Morphine Inj) 4 mg IV.PUSH Q2H PRN PRN Reason: BREAKTHROUGH PAIN Last Admin: 08/25/18 13:41 Dose: 4 mg Ondansetron HCl (Zofran Inj) 4 mg IV.PUSH Q4H PRN PRN Reason: NAUSEA Sodium Chloride (Ns Flush) 2 ml IV.FLUSH BID [facility] Last Admin: 08/25/18 13:45 Dose: Not Given Sodium Chloride (Ns Flush) 2 ml IV.FLUSH UNSCH PRN PRN Reason: FLUSH AFTER USING IV ACCESS Allergies Allergy/AdvReac Type Severity Reaction Status Date / Time penicillin G Allergy Mild Rash Verified 08/13/18 18:49 Home Medications Medication Instructions Recorded Confirmed Type oxycodone-acetaminophen [Percocet] 1 tab PO Q4-6H 08/23/18 08/23/18 History Exam Vital signs: Vital Signs 08/24/18 20:00 08/24/18 22:53 08/25/18 00:00 Temperature 98.8 F 99.6 F Pulse Rate 91 H 104 H Respiratory Rate 20 18 20 Blood Pressure 101/57 L 113/62 Pulse Oximetry 96 99 08/25/18 04:41 08/25/18 08:00 08/25/18 12:00 Temperature 98.8 F 98.6 F Pulse Rate 105 H 93 H Respiratory Rate 18 18 18 Blood Pressure 119/70 105/59 L Pulse Oximetry 97 98 08/25/18 15:05 08/25/18 15:20 08/25/18 15:29 Temperature 99.0 F Pulse Rate 92 H 87 87 Respiratory Rate 18 20 20 Blood Pressure 95/60 L 105/62 99/67 L Pulse Oximetry 92 L 92 L 94 L 08/25/18 16:00 Temperature 98.4 F Pulse Rate 99 H Respiratory Rate 18 Blood Pressure 122/67 Pulse Oximetry 98 Intake & Output 08/24/18 08/25/18 08/25/18 18:59 06:59 18:59 Intake Total 2200 / 2200 1210 / 1210 1340 / 1340 Output Total 800 / 800 450 / 450 Balance 2200 / 2200 410 / 410 890 / 890 Weight 82.8 kg Intake: IV 2200 / 2200 1210 / 1210 1100 / 1100 D5W/1/2NS + KCL 20 mEq Inj 1, 2000 / 2000 1000 / 1000 1000 / 1000 000 ML @ 125 mls/hr IV.CONT . Q8H JJ Rx#:[id number] Gentamicin Inj 400 MG In NS Inj 110 / 110 100 ML @ 110 mls/hr IV.SIG Q24H JJ Rx#:[id number] Flagyl 500 MG Inj 100 ML @ 100 200 / 200 100 / 100 100 / 100 mls/hr IV.SIG Q8H JJ Rx#: [id number] Oral 240 / 240 Output: Urine 800 / 800 450 / 450 Other: Date of Last Bowel Movement 08/22/18 - Constitutional no acute distress, obese - Routine HEENT Exam Head: Present: normocephalic, atraumatic Eye: Present: EOMI, PERRL. Absent: scleral injection - Routine Neck Exam Present: supple. Absent: JVD, lymphadenopathy - Routine Respiratory Exam Present: CTA bilaterally. Absent: accessory muscle use, rhonchi - Routine Cardiovascular Exam Present: RRR, S1, S2. Absent: murmur, gallop - Routine Abdominal Exam Present: soft, normoactive bowel sounds, tenderness, rebound (LLQ), guarding ( LLQ) Comments: Incision with opening and is undermined draining purulent d/c in L aspect LLQ accordeon drain in place with large amount of white pus - Routine Extremities Exam Absent: cyanosis, clubbing, edema - Routine Skin Exam Present: intact. Absent: rash - Routine Neurological Exam Present: alert, oriented X3, CN II-XII intact. Absent: sensory deficit, motor deficit - Routine Psychiatric Exam Present: normal affect, normal thought process, cooperative Results - Labs CBC & Chem 7: 08/24/18 13:00 08/24/18 13:00 - Imaging Impressions Abscess Drainage CT 08/25/18 09:49 CONCLUSION: 1. Uncomplicated CT guided drainage. Abdomen/Pelvis CT 08/23/18 19:19 CONCLUSION: 1. Increase in size of lower left rectus complex hematoma now measuring up to 11.2 x 8.1 cm. 2. Multiloculated fluid collection above and to the left of the uterus within the abdomen measuring up to 6.7 x 14 cm and an additional loculated fluid collection in the deep pelvis measuring 5.8 cm in diameter. These probably represent complex hematomas although cannot exclude infection. Abscess Drainage CT 08/25/18 09:49 CONCLUSION: 1. Uncomplicated CT guided drainage. Assessment and Plan - Plan Sp Csection h/o infectios complications bertrand prior Csection Multiple intraab/pelvic abscess complicating C section sp IR drainage The re are locaulations There is the deep pelvis abscess measuring 5.8 cm in diameter, not accesible by IR - dw Dr Houston. That might require open drainage PCN allergy cont flagyl switch gent to azactam add vanco for enterocci coverage for now Will rescan at some point when kaylyn subsides Further rec's to follow
[2018-08-25] MEDS: Aztreonam Inj 2 GM in Sodium Chloride 0.9% Inj 100 ML IV.SIG SCH (22:07)
[2018-08-25] MEDS: Vancomycin Inj 1,250 MG in Sodium Chlor 0.9% Inj 250 ML IV.SIG SCH (22:07)
[2018-08-25] MEDS: Enoxaparin Inj 40 MG/0.4 ML Syringe SQ SCH (22:08)
[2018-08-25] MEDS: Ibuprofen 600 MG Tablet PO PRN (22:10)
[2018-08-26] MEDS: KCL 20 mEq/D5W/NaCl 0.45% Inj 1,000 ML IV.CONT SCH ×5 (00:56→22:41)
[2018-08-26] MEDS: Aztreonam Inj 2 GM in Sodium Chloride 0.9% Inj 100 ML IV.SIG SCH ×4 (03:40→22:21)
--- NOTE | 2018-08-26 09:35 | P.PNOB ---
Subjective Interval history: Pt seen and examined today by OB team. Pt feeling much improvement after drain placement in IR. No N/V. Ambulating with less difficulty. Decreased pain. Objective Vital Signs/I&O: Vital Signs 08/25/18 12:00 08/25/18 15:05 08/25/18 15:20 Temperature 98.6 F 99.0 F Pulse Rate 93 H 92 H 87 Respiratory Rate 18 18 20 Blood Pressure 105/59 L 95/60 L 105/62 Pulse Oximetry 98 92 L 92 L 08/25/18 15:29 08/25/18 16:00 08/25/18 20:00 Temperature 98.4 F 98.4 F Pulse Rate 87 99 H 93 H Respiratory Rate 20 18 17 Blood Pressure 99/67 L 122/67 104/58 L Pulse Oximetry 94 L 98 98 08/26/18 00:00 08/26/18 01:40 08/26/18 08:00 Temperature 98.7 F 97.9 F Pulse Rate 82 80 Respiratory Rate 18 18 18 Blood Pressure 104/58 L 104/56 L Pulse Oximetry 98 98 Intake & Output 08/25/18 08/26/18 08/26/18 18:59 06:59 18:59 Intake Total 1340 / 1340 1662.5 / 1662.5 Output Total 580 / 580 200 / 200 Balance 760 / 760 1462.5 / 1462.5 Intake: IV 1100 / 1100 1662.5 / 1662.5 D5W/1/2NS + KCL 20 mEq Inj 1, 1000 / 1000 1000 / 1000 000 ML @ 125 mls/hr IV.CONT . Q8H JJ Rx#:[id number] Azactam Inj 2 GM In NS Inj 100 200 / 200 ML @ 200 mls/hr IV.SIG Q6H JJ Rx#:[id number] Vancomycin Inj 1,250 MG In NS 262.5 / 262.5 Inj 250 ML @ 250 mls/hr IV.SIG Q12H JJ Rx#:[id number] Flagyl 500 MG Inj 100 ML @ 100 100 / 100 200 / 200 mls/hr IV.SIG Q8H JJ Rx#: [id number] Oral 240 / 240 Output: Urine 450 / 450 Wound Drainage 130 / 130 200 / 200 # 1 Left Lower Anterior Abdomen 130 / 130 200 / 200 Other: # Voids 3 Result Diagrams: 08/24/18 13:00 08/24/18 13:00 Objective Remarks: GENERAL: Well-nourished, well-developed patient. CARDIOVASCULAR: Regular rate and rhythm without murmurs, gallops, or rubs. RESPIRATORY: Breath sounds equal bilaterally. No accessory muscle use. ABDOMEN/GI: Abdomen soft, non-tender, bowel sounds present. Incision: 3cm opening with minimal drainage through incision. cavity visualized with small amount of foul smelling pus remaining. Drain placed in LLQ and actively draining, bag changed recently. Fundus: Firm, non-tender at umbilicus. GENITOURINARY: Light to moderate bleeding. EXTREMITIES: No cyanosis or edema, non-tender, without signs of DVT. Medications and IVs: Active Medications Acetaminophen (Tylenol) 650 mg PO Q6H PRN PRN Reason: PAIN 1-10 AND/OR FEVER >101F Enoxaparin Sodium (Lovenox Inj) 40 mg SQ Q24H [facility] Last Admin: 08/25/18 22:08 Dose: Not Given Metronidazole/Sodium Chloride (Flagyl 500 Mg Inj) 100 mls @ 100 mls/hr IV.SIG Q8H [facility] Last Infusion: 08/26/18 01:58 Dose: Infused Potassium Chloride/Dextrose/Sod Cl (D5w/1/2ns + Kcl 20 Meq Inj) 1,000 mls @ 125 mls/hr IV.CONT .Q8H JJ Last Admin: 08/26/18 07:28 Dose: Not Given Aztreonam 2 gm/ Sodium (Chloride) 100 mls @ 200 mls/hr IV.SIG Q6H [facility] Last Admin: 08/26/18 08:34 Dose: 150 mls/hr Vancomycin HCl 1,250 mg/ (Sodium Chloride) 262.5 mls @ 250 mls/hr IV.SIG Q12H [facility] Last Infusion: 08/25/18 23:22 Dose: Infused Ibuprofen (Motrin) 800 mg PO Q4H PRN PRN Reason: PAIN 1-10 AND/OR FEVER >101F Last Admin: 08/25/18 22:10 Dose: 800 mg Ibuprofen (Motrin) 800 mg PO Q6H PRN PRN Reason: Acute Pain Last Admin: 08/24/18 22:23 Dose: 800 mg Ketorolac Tromethamine (Toradol Inj) 30 mg IV.PUSH Q6H PRN PRN Reason: PAIN SCALE 1 TO 10 Last Admin: 08/23/18 23:37 Dose: 30 mg Miscellaneous Information ([facility] Ordered Lab Info) 0 each OTHER ONCE ONE Stop: 08/27/18 07:46 Morphine Sulfate (Morphine Inj) 4 mg IV.PUSH Q2H PRN PRN Reason: BREAKTHROUGH PAIN Last Admin: 08/25/18 13:41 Dose: 4 mg Ondansetron HCl (Zofran Inj) 4 mg IV.PUSH Q4H PRN PRN Reason: NAUSEA Pharmacy Profile Note (Vancomycin Consult Pharmacy) 1 each OTHER UNSCH PRN PRN Reason: Pharmacy to dose Sodium Chloride (Ns Flush) 2 ml IV.FLUSH BID JJ Last Admin: 08/26/18 08:34 Dose: Not Given Sodium Chloride (Ns Flush) 2 ml IV.FLUSH UNSCH PRN PRN Reason: FLUSH AFTER USING IV ACCESS Assessment and Plan - Plan Plan for this patient who is 3 weeks out from now with abdominal wall hematoma/abscess with parametritis in the pelvis and admission to the hospital for IV antibiotics broad-spectrum IV Flagyl 500 mg q. 8 and IV gentamicin 400 mg once every 24 hours, electrolyte replacement as needed, IV fluid hydration, check CBC CMP. Will likely let the abscess continued to drain over the day today, and obtain CT at some point tonight or tomorrow to evaluate remaining fluid. We will then consult IR for possible drainage of remaining fluid. Abdominal wall abscess - Monitor drainage - Cont ABX as per ID Sepsis criteria met on admission: tachycardic, WBC 19, source: abdominal infection, febrile 07/25 at 00:00 at 102.1 - Cont ABX as per ID - f/u abdominal cx - blood cx negative x 2 day Anemia - Will d/c with Fe/Vit C/Colace Hypokalemia (3.2) - Cont to monitor, f/u BMP
[2018-08-26] MEDS: Vancomycin Inj 1,250 MG in Sodium Chlor 0.9% Inj 250 ML IV.SIG SCH ×2 (10:35→22:21)
[2018-08-26 14:43] LABS: Baso % (Auto) 0.2 % (0.0-2.0); Eos # (Auto) 0.1 th/mm3 (0.0-0.4); Eos % (Auto) 0.9 % (0.0-4.0); Hematocrit 26.2 % (35.0-46.0); Hemoglobin 8.8 gm/dL (11.6-15.3); Lymph # (Auto) 1.8 th/mm3 (1.0-4.8); Lymph % (Auto) 12.5 % (9.0-44.0); Mean Corpuscular HGB Conc 33.7 % (32.0-36.0); Mean Corpuscular Hemoglobin 26.1 pg (27.0-34.0); Mean Corpuscular Volume 77.5 fL (80.0-100.0); Mean Platelet Volume 6.7 fL (7.0-11.0); Mono # (Auto) 0.6 th/mm3 (0.0-0.9); Mono % (Auto) 4.2 % (0.0-8.0); Neut # (Auto) 12.1 th/mm3 (1.8-7.7); Neut % (Auto) 82.2 % (16.0-70.0); Platelet Count 558 th/mm3 (150-450); Red Blood Count 3.38 mil/mm3 (4.00-5.30); Red Cell Distribution Width 17.1 % (11.6-17.2); White Blood Count 14.7 th/mm3 (4.0-11.0)
[2018-08-26] MEDS: Ibuprofen 600 MG Tablet PO PRN (16:29)
[2018-08-26] MEDS: Enoxaparin Inj 40 MG/0.4 ML Syringe SQ SCH (22:26)
[2018-08-27] MEDS: Aztreonam Inj 2 GM in Sodium Chloride 0.9% Inj 100 ML IV.SIG SCH ×4 (01:19→22:18)
[2018-08-27] MEDS: Ibuprofen 600 MG Tablet PO PRN (03:57)
[2018-08-27] MEDS ORDERED: Pharmacy Ordered Lab Info OTHER ONE ×2 (07:45→19:45)
[2018-08-27] MEDS: Vancomycin Inj 1,250 MG in Sodium Chlor 0.9% Inj 250 ML IV.SIG SCH ×2 (08:13→22:18)
[2018-08-27] MEDS: KCL 20 mEq/D5W/NaCl 0.45% Inj 1,000 ML IV.CONT SCH ×2 (08:23→18:55)
[2018-08-27] MEDS: Morphine Inj 4 MG/ML Vial IV.PUSH PRN (09:45)
--- NOTE | 2018-08-27 10:24 | P.PNOB ---
Subjective Interval history: Pt seen and examined bedside this morning. Pt feeling 50% better since admission. No N/V. Ambulating and voiding without difficulty. Abdominal pain much decreased. Denies any CP/SOB/dizzyness. Objective Vital Signs/I&O: Vital Signs 08/26/18 12:00 08/26/18 16:00 08/26/18 20:00 Temperature 98.7 F 98.0 F 98.0 F Pulse Rate 80 81 74 Respiratory Rate 18 18 18 Blood Pressure 108/63 107/53 L 102/63 Pulse Oximetry 98 97 99 08/27/18 00:00 08/27/18 00:41 08/27/18 08:00 Temperature 97.9 F 98.0 F Pulse Rate 73 67 Respiratory Rate 18 18 19 Blood Pressure 103/55 L 126/63 Pulse Oximetry 98 97 Intake & Output 08/26/18 08/27/18 08/27/18 18:59 06:59 18:59 Intake Total 1787.5 / 1787.5 2137.5 / 2137.5 1000 / 1000 Output Total 25 / 25 0 / 0 Balance 1762.5 / 1762.5 2137.5 / 2137.5 1000 / 1000 Weight 82.8 kg Intake: IV 1787.5 / 1787.5 1137.5 / 1137.5 1000 / 1000 D5W/1/2NS + KCL 20 mEq Inj 1, 1125 / 1125 575 / 575 1000 / 1000 000 ML @ 125 mls/hr IV.CONT . Q8H JJ Rx#:[id number] Azactam Inj 2 GM In NS Inj 100 200 / 200 200 / 200 ML @ 200 mls/hr IV.SIG Q6H JJ Rx#:[id number] Vancomycin Inj 1,250 MG In NS 262.5 / 262.5 262.5 / 262.5 Inj 250 ML @ 250 mls/hr IV.SIG Q12H JJ Rx#:[id number] Flagyl 500 MG Inj 100 ML @ 100 200 / 200 100 / 100 mls/hr IV.SIG Q8H JJ Rx#: [id number] Oral 1000 / 1000 Output: Wound Drainage 25 / 25 0 / 0 # 1 Left Lower Anterior Abdomen 25 / 25 0 / 0 Other: # Voids 3 Date of Last Bowel Movement 08/24/18 08/26/18 # Bowel Movements 1 Result Diagrams: 08/26/18 14:34 08/24/18 13:00 Objective Remarks: GENERAL: Well-nourished, well-developed patient. CARDIOVASCULAR: Regular rate and rhythm without murmurs, gallops, or rubs. RESPIRATORY: Breath sounds equal bilaterally. No accessory muscle use. ABDOMEN/GI: Abdomen soft, non-tender, bowel sounds present. Incision: Clean, dry. 3cm opening with no draininage. drain placed in LLQ with nothing draining. Fundus: Firm, non-tender at umbilicus. GENITOURINARY: Light to moderate bleeding. EXTREMITIES: No cyanosis or edema, non-tender, without signs of DVT. Medications and IVs: Active Medications Acetaminophen (Tylenol) 650 mg PO Q6H PRN PRN Reason: PAIN 1-10 AND/OR FEVER >101F Diatrizoate Meglum/Diatrizoate Sod (Md Brown Liq) 18 ml PO ONCE ONE; Protocol Stop: 08/27/18 10:07 Enoxaparin Sodium (Lovenox Inj) 40 mg SQ Q24H [facility] Last Admin: 08/26/18 22:26 Dose: Not Given Metronidazole/Sodium Chloride (Flagyl 500 Mg Inj) 100 mls @ 100 mls/hr IV.SIG Q8H JJ Last Admin: 08/27/18 08:19 Dose: 100 mls/hr Potassium Chloride/Dextrose/Sod Cl (D5w/1/2ns + Kcl 20 Meq Inj) 1,000 mls @ 125 mls/hr IV.CONT .Q8H JJ Last Admin: 08/27/18 08:23 Dose: 125 mls/hr Aztreonam 2 gm/ Sodium (Chloride) 100 mls @ 200 mls/hr IV.SIG Q6H JJ Last Admin: 08/27/18 08:14 Dose: 100 mls/hr Vancomycin HCl 1,250 mg/ (Sodium Chloride) 262.5 mls @ 250 mls/hr IV.SIG Q12H JJ Last Admin: 08/27/18 08:13 Dose: 250 mls/hr Ibuprofen (Motrin) 800 mg PO Q4H PRN PRN Reason: PAIN 1-10 AND/OR FEVER >101F Last Admin: 08/27/18 03:57 Dose: 800 mg Ibuprofen (Motrin) 800 mg PO Q6H PRN PRN Reason: Acute Pain Last Admin: 08/27/18 08:19 Dose: 800 mg Ketorolac Tromethamine (Toradol Inj) 30 mg IV.PUSH Q6H PRN PRN Reason: PAIN SCALE 1 TO 10 Last Admin: 08/23/18 23:37 Dose: 30 mg Morphine Sulfate (Morphine Inj) 4 mg IV.PUSH Q2H PRN PRN Reason: BREAKTHROUGH PAIN Last Admin: 08/27/18 09:45 Dose: 4 mg Ondansetron HCl (Zofran Inj) 4 mg IV.PUSH Q4H PRN PRN Reason: NAUSEA Pharmacy Profile Note (Vancomycin Consult Pharmacy) 1 each OTHER UNSCH PRN PRN Reason: Pharmacy to dose Sodium Chloride (Ns Flush) 2 ml IV.FLUSH BID JJ Last Admin: 08/26/18 22:26 Dose: 2 ml Sodium Chloride (Ns Flush) 2 ml IV.FLUSH UNSCH PRN PRN Reason: FLUSH AFTER USING IV ACCESS Assessment and Plan - Plan Plan for this patient who is 3 weeks out from now with abdominal wall hematoma/abscess with parametritis in the pelvis and admission to the hospital for IV antibiotics broad-spectrum IV Flagyl 500 mg q. 8 and IV gentamicin 400 mg once every 24 hours, electrolyte replacement as needed, IV fluid hydration, check CBC CMP. Will likely let the abscess continued to drain over the day today, and likely remove drain tomorrow. Abdominal wall abscess - Monitor drainage - Cont ABX as per ID Sepsis criteria met on admission: tachycardic, WBC 19, source: abdominal infection, febrile 07/25 at 00:00 at 102.1 - WBC is decreased to 14 on 08/26 - Cont ABX as per ID - f/u abdominal cx : growing Group B Strep prelim - blood cx negative x 3 day Anemia - Will d/c with Fe/Vit C/Colace Hypokalemia - Resolved - Cont to monitor, f/u BMP
[2018-08-27] MEDS ORDERED: Ketorolac Inj 30 MG/ML (IVP) Vial IV.PUSH PRN (10:40)
[2018-08-27] MEDS ORDERED: Morphine Inj 4 MG/ML Vial IV.PUSH PRN (10:40)
[2018-08-27] MEDS ORDERED: Ibuprofen 400 MG Tablet PO PRN (10:40)
[2018-08-27] MEDS ORDERED: Naloxone Inj 0.4 MG/ML Vial IV.PUSH PRN (10:40)
[2018-08-27] MEDS ORDERED: Diatrizoate Meglum/Diatrizoate Sod Liq 9 ML UDC PO ONE (10:45)
[2018-08-27] MEDS: oxyCODONE/Acetaminophen 10/325 Tablet PO PRN (18:51)
--- NOTE | 2018-08-27 19:02 | CT ---
EXAM DATE: 08/27/2018 6:08 PM EDT AGE/SEX: 22 years / Female INDICATIONS: Evaluate abscess CLINICAL DATA: This is the patient's subsequent encounter. Patient reports that signs and symptoms h ave been present for 3 days and indicates a pain score of 2/10. MEDICAL/SURGICAL HISTORY: . Abscess section. RADIATION DOSE: 15.39 CTDI (mGy) COMPARISON: [facility] [place], CT ABDOMEN & PELVIS W CONTRAST, 08/23/2018. . TECHNIQUE: Multiple contiguous axial images were obtained through the abdomen. Images were obtained using multiple row detector helical technique. Using automated exposure control and adjustment of the mA and/or kV according to patient size, radiation dose was kept as low as reasonably achievable to o btain optimal diagnostic quality images. DICOM format image data is available electronically for rev iew and comparison. FINDINGS: Previous complex rectus hematoma has markedly improved in size and now measures about 5 cm in thickne ss compared with previous 8 cm. The multiloculated fluid collection in the lower abdomen has also mar kedly decreased in size with placement of a CT Guided Drainage catheter. There is a small amount of r esidual fluid present. Small locules of air are present in the lower anterior abdominal wall. There is a 3 cm loculated fluid collection in the lower anterior right abdomen similar in size the pr evious exam although slightly increased in attenuation. Lung bases demonstrate some linear atelectasis. No acute findings in the liver, spleen, adrenals, kid neys or pancreas. No acute bony abnormalities. CONCLUSION: 1. Decrease in size of rectus hematoma and marked decrease in size of multiloculated fluid collectio n in the left lower quadrant since the CT guided drainage catheter placement. 2. Stable 3 cm complex loculated fluid in the lower anterior right abdomen. 3. Mild anasarca. No bowel obstruction. Tiny locules of air in the lower anterior abdominal wall. Electronically signed by: Vernon Mas MD 08/27/2018 7:01 PM EDT
[2018-08-27 22:03] LABS: Baso % (Auto) 0.4 % (0.0-2.0); Eos # (Auto) 0.2 th/mm3 (0.0-0.4); Eos % (Auto) 1.8 % (0.0-4.0); Hematocrit 25.3 % (35.0-46.0); Hemoglobin 8.6 gm/dL (11.6-15.3); Lymph # (Auto) 2.1 th/mm3 (1.0-4.8); Lymph % (Auto) 23.5 % (9.0-44.0); Mean Corpuscular HGB Conc 33.9 % (32.0-36.0); Mean Corpuscular Hemoglobin 26.3 pg (27.0-34.0); Mean Corpuscular Volume 77.5 fL (80.0-100.0); Mean Platelet Volume 6.7 fL (7.0-11.0); Mono # (Auto) 0.4 th/mm3 (0.0-0.9); Mono % (Auto) 4.5 % (0.0-8.0); Neut # (Auto) 6.4 th/mm3 (1.8-7.7); Neut % (Auto) 69.8 % (16.0-70.0); Platelet Count 577 th/mm3 (150-450); Red Blood Count 3.26 mil/mm3 (4.00-5.30); Red Cell Distribution Width 16.7 % (11.6-17.2); White Blood Count 9.1 th/mm3 (4.0-11.0)
[2018-08-27] MEDS: Enoxaparin Inj 40 MG/0.4 ML Syringe SQ SCH (22:22)
[2018-08-27 22:26] LABS: Anion Gap 8 meq/L (5-15)
[2018-08-27 22:30] LABS: Alanine Aminotransferase 6 U/L (10-53); Albumin 1.7 g/dL (3.4-5.0); Alkaline Phosphatase 75 U/L (45-117); Aspartate Aminotransferase 7 U/L (15-37); Blood Urea Nitrogen 6 mg/dL (7-18); Calcium 7.4 mg/dL (8.5-10.1); Carbon Dioxide 29.3 meq/L (21.0-32.0); Chloride 106 meq/L (98-107); Glomerular Filtration Rate Greater Than 89 mL/min (>89); Glucose,Random 118 mg/dL (74-106); Sodium 143 meq/L (136-145); Total Protein 5.9 g/dL (6.4-8.2); Vancomycin,Trough 11.4 mcg/mL (5.0-10.0)
[2018-08-27 22:45] LABS: Potassium 2.9 meq/L (3.5-5.1)
[2018-08-28] MEDS: KCL 20 mEq/D5W/NaCl 0.45% Inj 1,000 ML IV.CONT SCH ×3 (00:16→15:10)
[2018-08-28] MEDS: oxyCODONE/Acetaminophen 10/325 Tablet PO PRN ×2 (02:51→08:40)
[2018-08-28] MEDS: Aztreonam Inj 2 GM in Sodium Chloride 0.9% Inj 100 ML IV.SIG SCH ×3 (02:52→15:09)
--- NOTE | 2018-08-28 09:14 | P.PNOB ---
Subjective Interval history: This patient's had a complicated postop course after with abdominal wall hematoma then multiple abscesses that were drained by interventional radiology to over 200 cc of pus, as well as a large amount of purulent drainage from her wound and Pfannenstiel incision. Patient is feeling much better now having essentially no pain she is tolerating a diet she is having some diarrhea related probably the antibiotics is gone she also has a yeast infection which she is receiving Monistat cream. Secondary to the multiple antibiotics she is been on. Patient's been afebrile for greater than 48 hours, her white count is gone from 19,000 on admission to 9000 yesterday Objective Vital Signs/I&O: Vital Signs 08/27/18 12:00 08/27/18 16:00 08/27/18 20:00 Temperature 98.0 F 97.9 F 97.7 F Pulse Rate 60 59 L 64 Respiratory Rate 19 19 16 Blood Pressure 96/53 L 114/72 102/60 Pulse Oximetry 98 100 98 08/28/18 00:00 08/28/18 02:00 Temperature 98.3 F Pulse Rate 66 Respiratory Rate 16 18 Blood Pressure 96/58 L Pulse Oximetry 97 Intake & Output 08/27/18 08/28/18 08/28/18 18:59 06:59 18:59 Intake Total 4262.5 / 4262.5 962.5 / 962.5 1600 / 1600 Balance 4262.5 / 4262.5 962.5 / 962.5 1600 / 1600 Intake: IV 2462.5 / 2462.5 962.5 / 962.5 1600 / 1600 D5W/1/2NS + KCL 20 mEq Inj , 1999 / 2000 200 / 200 1600 / 1600 000 ML @ 125 mls/hr IV.CONT . Q8H JJ Rx#:[id number] Azactam Inj 2 GM In NS Inj 100 100 / 100 300 / 300 ML @ 200 mls/hr IV.SIG Q6H JJ Rx#:[id number] Vancomycin Inj 1,250 MG In NS 262.5 / 262.5 262.5 / 262.5 Inj 250 ML @ 250 mls/hr IV.SIG Q12H JJ Rx#:[id number] Flagyl 500 MG Inj 100 ML @ 100 100 / 100 200 / 200 mls/hr IV.SIG Q8H JJ Rx#: [id number] Oral 1800 / 1800 Other: # Voids 3 3 Date of Last Bowel Movement 08/27/18 Result Diagrams: 08/27/18 21:52 08/27/18 21:52 Objective Remarks: GENERAL: Well-nourished, well-developed patient. CARDIOVASCULAR: Regular rate and rhythm without murmurs, gallops, or rubs. RESPIRATORY: Breath sounds equal bilaterally. No accessory muscle use. ABDOMEN/GI: Abdomen soft, non-tender, bowel sounds present. Pigtail drain in the abscess left by interventional radiology was removed today without difficulty. Incision: Pfannenstiel incision still with a 3 cm defect that is being cleaned with peroxide twice a day. And having a bandage placed over it in the interim. Fundus: Firm, non-tender at umbilicus. GENITOURINARY: EXTREMITIES: No cyanosis or edema, non-tender, without signs of DVT. Medications and IVs: Active Medications Enoxaparin Sodium (Lovenox Inj) 40 mg SQ Q24H [facility] Last Admin: 08/27/18 22:22 Dose: Not Given Metronidazole/Sodium Chloride (Flagyl 500 Mg Inj) 100 mls @ 100 mls/hr IV.SIG Q8H [facility] Last Infusion: 08/28/18 01:51 Dose: Infused Potassium Chloride/Dextrose/Sod Cl (D5w/1/2ns + Kcl 20 Meq Inj) 1,000 mls @ 125 mls/hr IV.CONT .Q8H [facility] Last Admin: 08/28/18 08:39 Dose: 125 mls/hr Aztreonam 2 gm/ Sodium (Chloride) 100 mls @ 200 mls/hr IV.SIG Q6H [facility] Last Admin: 08/28/18 08:39 Dose: 200 mls/hr Vancomycin HCl 1,250 mg/ (Sodium Chloride) 262.5 mls @ 250 mls/hr IV.SIG Q12H [facility] Last Infusion: 08/27/18 23:27 Dose: Infused Ibuprofen (Motrin) 400 mg PO Q6HR PRN PRN Reason: PAIN SCALE 1 TO 2 Ketorolac Tromethamine (Toradol Inj) 15 mg IV.PUSH Q6H PRN PRN Reason: PAIN 3-5; IF UABLE TO TAKE PO Stop: 09/01/18 10:39 Miconazole Nitrate (Monistat 7 Vag Cream) 1 appful VAGINAL DAILY@2100 [facility] Last Admin: 08/27/18 22:18 Dose: 1 appful Morphine Sulfate (Morphine Inj) 2 mg IV.PUSH Q3H PRN PRN Reason: BREAKTHROUGH PAIN Naloxone HCl (Narcan Inj) 0.4 mg IV.PUSH UNSCH PRN PRN Reason: SEE LABEL COMMENTS Ondansetron HCl (Zofran Inj) 4 mg IV.PUSH Q4H PRN PRN Reason: NAUSEA Last Admin: 08/27/18 10:20 Dose: 4 mg Oxycodone/Acetaminophen (Percocet 10/325 Mg) 1 tab PO Q6H PRN PRN Reason: PAIN SCALE 6 TO 10 Last Admin: 08/28/18 08:40 Dose: 1 tab Pharmacy Profile Note (Vancomycin Consult Pharmacy) 1 each OTHER UNSCH PRN PRN Reason: Pharmacy to dose Potassium Chloride (K-Dur) 20 meq PO DAILY [facility] Last Admin: 08/28/18 08:40 Dose: 20 meq Sodium Chloride (Ns Flush) 2 ml IV.FLUSH BID [facility] Last Admin: 08/28/18 08:40 Dose: Not Given Sodium Chloride (Ns Flush) 2 ml IV.FLUSH UNSCH PRN PRN Reason: FLUSH AFTER USING IV ACCESS Assessment and Plan - Diagnosis (1) Abscess of postoperative wound of abdominal wall Code(s): T81.49XA - Infection following a procedure, other surgical site, initial encounter Status: Acute (2) Hematoma of abdominal wall Code(s): S30.1XXA - Contusion of abdominal wall, initial encounter Status: Acute (3) Parametritis Code(s): N73.2 - Unspecified parametritis and pelvic cellulitis Status: Acute (4) History of delivery Code(s): Z98.891 - History of uterine scar from previous surgery Status: Acute - Plan Patient now ready for discharge home and that she is able to ambulate have adequate bowel and bladder function tolerating her diet well and states that she can get her to help take care of her Pfannenstiel open incision area of the needs to discontinue was cleaning at this stage and should close on its own shortly, the patient should be able to be discharged this afternoon once her outpatient care has been organized - Cont ABX as per ID and will consult with them on outpatient medication as needed if any - f/u abdominal wound: growing Group B Strep , will arrange for outpatient care and follow-up Pfannenstiel defect - blood cx negative x 3 day Anemia - Will d/c with Fe/Vit C/Colace Hypokalemia - Resolved - Cont to monitor, f/u BMP (2) Hematoma of abdominal wall Qualifiers: Encounter type: subsequent encounter Qualified Code(s): S30.1XXD - Contusion of abdominal wall, subsequent encounter
[2018-08-28] MEDS: Vancomycin Inj 1,250 MG in Sodium Chlor 0.9% Inj 250 ML IV.SIG SCH (10:03)
--- NOTE | 2018-08-28 11:37 | P.PNID ---
Subjective Remarks: pt is very upset, crying 2/2 painful removal of her drain O/w she is doing OK afebrile WBC 9 K Antibiotics: aztreonam flagyl vanco iv Allergies/Adverse Reactions: Allergies penicillin G Allergy (Mild, Verified 08/13/18 18:49) Rash Objective Vital Signs 08/27/18 12:00 08/27/18 16:00 08/27/18 20:00 Temperature 98.0 F 97.9 F 97.7 F Pulse Rate 60 59 L 64 Respiratory Rate 19 19 16 Blood Pressure 96/53 L 114/72 102/60 Pulse Oximetry 98 100 98 08/28/18 00:00 08/28/18 02:00 08/28/18 08:00 Temperature 98.3 F 97.7 F Pulse Rate 66 61 Respiratory Rate 16 18 18 Blood Pressure 96/58 L 96/65 L Pulse Oximetry 97 100 Intake & Output 08/27/18 08/28/18 08/28/18 18:59 06:59 18:59 Intake Total 4262.5 / 4262.5 962.5 / 962.5 1700 / 1700 Output Total 0 / 0 Balance 4262.5 / 4262.5 962.5 / 962.5 1700 / 1700 Intake: IV 2462.5 / 2462.5 962.5 / 962.5 1700 / 1700 D5W/1/2NS + KCL 20 mEq Inj , 1999 / 1999 200 / 200 1600 / 1600 000 ML @ 125 mls/hr IV.CONT . Q8H JJ Rx#:[id number] Azactam Inj 2 GM In NS Inj 100 100 / 100 300 / 300 100 / 100 ML @ 200 mls/hr IV.SIG Q6H JJ Rx#:[id number] Vancomycin Inj 1,250 MG In NS 262.5 / 262.5 262.5 / 262.5 Inj 250 ML @ 250 mls/hr IV.SIG Q12H JJ Rx#:[id number] Flagyl 500 MG Inj 100 ML @ 100 100 / 100 200 / 200 mls/hr IV.SIG Q8H JJ Rx#: [id number] Oral 1800 / 1800 Output: Wound Drainage 0 / 0 # 1 Left Lower Anterior Abdomen 0 / 0 Other: # Voids 3 3 Date of Last Bowel Movement 08/27/18 08/27/18 08/23/18 21:20 Blood - Peripheral Aerobic Blood Culture - Final No growth in 5 days 08/23/18 21:20 Blood - Peripheral Anaerobic Blood Culture - Final No growth in 5 days 08/23/18 21:25 Blood - Peripheral Aerobic Blood Culture - Final No growth in 5 days 08/23/18 21:25 Blood - Peripheral Anaerobic Blood Culture - Final No growth in 5 days 08/25/18 08:30 Abscess - Abdominal Gram Stain - Final 08/25/18 08:30 Abscess - Abdominal Wound Culture - Final Group B beta Strep anaerobic gram negative rods 08/24/18 00:15 Clean Catch Urine Urine Culture - Final >100,000 cfu/mL mixed gram positive beatriz (probable contaminantes) Lab - Hematology Results 08/26/18 08/27/18 14:34 21:52 WBC 14.7 H 9.1 RBC 3.38 L 3.26 L Hgb 8.8 L 8.6 L Hct 26.2 L 25.3 L MCV 77.5 L 77.5 L MCH 26.1 L 26.3 L MCHC 33.7 33.9 RDW 17.1 16.7 Plt Count 558 H 577 H MPV 6.7 L 6.7 L Neut % (Auto) 82.2 H 69.8 Lymph % (Auto) 12.5 23.5 [place] % (Auto) 4.2 4.5 Eos % (Auto) 0.9 1.8 Baso % (Auto) 0.2 0.4 Neut # (Auto) 12.1 H 6.4 Lymph # (Auto) 1.8 2.1 [place] # (Auto) 0.6 0.4 Eos # (Auto) 0.1 0.2 Baso # (Auto) 0.0 0.0 WBC Differential . . Differential Comment Auto diff final Auto diff final Lab - Chemistry Results 08/27/18 21:52 Sodium 143 Potassium 2.9 L* Chloride 106 Carbon Dioxide 29.3 Anion Gap 8 BUN 6 L Creatinine 0.63 Estimated GFR Greater than 89 Random Glucose 118 H Calcium 7.4 L* Prot Corrected Calcium 8.1 L Total Bilirubin 0.2 AST 7 L ALT 6 L Alkaline Phosphatase 75 Total Protein 5.9 L D Albumin 1.7 L Imaging: ITS Impressions Abscess Drainage CT 08/25/18 09:49 CONCLUSION: 1. Uncomplicated CT guided drainage. Abdomen/Pelvis CT 08/27/18 00:00 CONCLUSION: 1. Decrease in size of rectus hematoma and marked decrease in size of multiloculated fluid collection in the left lower quadrant since the CT guided drainage catheter placement. 2. Stable 3 cm complex loculated fluid in the lower anterior right abdomen. 3. Mild anasarca. No bowel obstruction. Tiny locules of air in the lower anterior abdominal wall. Physical Exam: GENERAL: pt is very upset, tearful SKIN: Warm and dry. no rash EYES: Pupils equal and round. No scleral icterus. No injection or drainage. ENT: No nasal bleeding or discharge. Mucous membranes pink and moist. CARDIOVASCULAR: Regular rate and rhythm. RESPIRATORY: No accessory muscle use. Clear to auscultation. Breath sounds equal bilaterally. GASTROINTESTINAL: Abdomen soft, + tender just in previous drain place no , nondistended. Hepatic and splenic margins not palpable. MUSCULOSKELETAL: Extremities without clubbing, cyanosis, or edema. No obvious deformities. NEUROLOGICAL: Awake and alert. Non focal PSYCHIATRIC: very upset Assessment and Plan - Plan Sp Csection h/o infectios complications bertrand prior Csection Multiple intraab/pelvic abscess complicating C section, mixed aerobic/anaerobic sp IR drainage. Abscesses decreased in size The re are loculations PCN allergy cont flagyl 500 mg TID PO + levaquine 750 mg PO daily x 2 weeks as o/p Both flagyl and levaquine are excreated to breast milk and breast feeding should be avoided while on those abx Levaquine half life in breast milk 7 hrs, for flagyl 9-10 hrs No alternatives 2/2 PCN allergy then repeat imaging. OK to dc from [facility] charge nurse Jamey Zapien
--- NOTE | 2018-08-28 15:34 | P.OBGPN ---
Patient wants to go home and dose not want any further procedures during this hospitalization. She was refusing IV antibiotics during the day today. After discussion with Dr. Burton (ID), decision was made to discharge patient on PO antibiotics. She feels much better and has clinically improved, including being afebrile with a WBC that has normalized. I returned to the bedside and discussed plans for her discharge. She was instructed to take Flagyl three times per day and Levaquin 1 time per day for 14 days. She was informed that breast-feeding is unsafe while on the medications. she expressed understanding and states she will breastfeed anyway. She was informed that she needed follow-up with a physician after discharge, and agreed to [facility]. She was also informed that we recommended a CT abdomen and pelvis in 2 weeks in order to evaluate the status of her infections. Case management has arranged follow up with [facility]. Infectious Disease has agreed with this plan. Care was discussed with Dr. March and Dr. Madina Weinstein.
== END 2018-08-28 15:53 | disposition home or self-care (01) ==
LOC: NEPE 17:46 → NEDA 21:21 → N07 23:15
PROVIDERS: ADMIT Obstetrics & Gynecology Maternal & Fetal Medicine; ATTEND Obstetrics & Gynecology Maternal & Fetal Medicine